=== PATIENT | female | born 1950 | race Caucasian/White ===

== ENCOUNTER 2017-01-05 07:57 | Day surgery (SDC) | payer MEDICARE ==
[2017-01-03 15:43] VITALS: BMI 33.3
[~2017-01-05 07:57] MED LIST: LACTATED RINGERS 1,000 ML IV SCH; LIDOCAINE 1% 20 ML VIAL (10MG/ML) FOR IV START INTRADERMA PRN
[2017-01-05 08:26] VITALS: TEMP 978.2
[2017-01-05 08:27] LABS: Glucose,Whole Blood 102 mg/dL (75-99)
[2017-01-05] MEDS ORDERED: PROPOFOL 10 MG/ML 20 ML VIAL IV ONE (08:32)
--- NOTE | 2017-01-05 08:57 | P.PCN ---
Date of Procedure: 01/05/17 Procedure(s) Performed: BRIEF HISTORY: Patient is a 66-year-old pleasant white female, scheduled for an elective colonoscopy as a part of evaluation of prior history of colon polyps. Her last colonoscopy was done 5 years ago. PROCEDURE PERFORMED: Colonoscopy. PREOPERATIVE DIAGNOSIS: History of colon polyps. IV sedation per Anesthesia. PROCEDURE: After informed consent was obtained, the patient, was brought into the endoscopy unit. IV sedation was administered by Anesthesia under continuous monitoring. Digital rectal examination was normal. Initially the Olympus CF- 160 flexible video colonoscope was then inserted in the rectum, gradually advanced into the cecum without any difficulty. Careful examination was performed as the scope was gradually being withdrawn. Ileocecal valve and the appendiceal orifice were visualized and appeared normal. Prep was excellent. Mucosa of the cecum, ascending colon, transverse colon, descending colon, sigmoid colon, and rectum appeared normal. Scattered sigmoid diverticulosis seen. Retroflexion was performed in the rectum and no lesions were seen. The patient tolerated the procedure well. IMPRESSION: Normal-appearing colon from rectum to cecum with no evidence of colorectal neoplasia. Scattered sigmoid diverticulosis.. RECOMMENDATIONS: Findings of this examination were discussed with the patient as well as her family. She was advised to have a repeat screening colonoscopy in 5 years because of the prior history of colon polyps..
[2017-01-05 09:05] VITALS: RESP 18
[2017-01-05 09:19] VITALS: BP 106/61; PULSE 68
== END 2017-01-05 09:37 | disposition home or self-care (01) ==
LOC: ORWHC2ENDO 07:57
PROVIDERS: ATTEND Internal Medicine Gastroenterology
DX: Z12.11 Encounter for screening for malignant neoplasm of colon (principal); K57.30 Diverticulosis of large intestine without perforation or abscess without bleeding; R19.4 Change in bowel habit; Z86.010 Personal history of colon polyps; I10 Essential (primary) hypertension; E78.5 Hyperlipidemia, unspecified; Z88.1 Allergy status to other antibiotic agents; J45.909 Unspecified asthma, uncomplicated; Z79.84 Long term (current) use of oral hypoglycemic drugs; Z79.899 Other long term (current) drug therapy
CPT/HCPCS: J2704; G0105

== ENCOUNTER → 2017-07-08 | Outpatient (CLI) | payer MEDICARE ==
--- NOTE | 2017-07-12 10:23 | MM ---
Reason for exam: screening (asymptomatic). Last mammogram was performed 1 year and 5 months ago. History: Patient is postmenopausal. Took estrogen for 6 years beginning at age 50. Physical Findings: A clinical breast exam by your physician is recommended on an annual basis and results should be correlated with mammographic findings. MG Screening Mammo w CAD Bilateral CC and MLO view(s) were taken. Prior study comparison: February 03, 2016, bilateral MG screening mammo w CAD. November 18, 2014, bilateral MG work up mamm w CAD BILAT. There are scattered fibroglandular densities. No suspicious abnormality. No significant changes when compared with prior studies. ASSESSMENT: Negative, BI-RAD 1 RECOMMENDATION: Routine screening mammogram of both breasts in 1 year.
== END | disposition home or self-care (01) ==
LOC: RADMAMWWP 07:48
PROVIDERS: ATTEND Family Medicine
DX: Z12.31 Encounter for screening mammogram for malignant neoplasm of breast (principal)
CPT/HCPCS: 77067

== ENCOUNTER 2018-06-11 23:40 | Emergency (ER) | payer MEDICARE ==
[2018-06-12] MEDS ORDERED: SODIUM CHLORIDE 0.9% 500 ML 500 ML IV STA (01:17)
[2018-06-12] MEDS ORDERED: ONDANSETRON 4 MG/2 ML VIAL IVP STA (01:17)
[2018-06-12 02:56] LABS: Basophils # (A) 0.1 k/uL (0-0.2); Basophils % (A) 1 %; Eosinophils # (A) 0.2 k/uL (0-0.7); Eosinophils % (A) 1 %; HCT 40.6 % (34.0-46.0); Lymphocytes # (A) 1.5 k/uL (1.0-4.8); Lymphocytes % (A) 8 %; MCHC 31.9 g/dL (31.0-37.0); MCV 87.7 fL (80.0-100.0); Mean Platelet Volume 8.1; Monocytes # (A) 0.7 k/uL (0-1.0); Monocytes % (A) 4 %; Neutrophils # (A) 14.7 k/uL (1.3-7.7); Neutrophils % (A) 86 %; Platelet Count 190 k/uL (150-450); RBC 4.63 m/uL (3.80-5.40); RDW 13.4 % (11.5-15.5); WBC 17.2 k/uL (3.8-10.6)
--- NOTE | 2018-06-12 03:04 | ED ---
Nausea/Vomiting/Diarrhea HPI - General Chief complaint: Nausea/Vomiting/Diarrhea Stated complaint: NVD Time Seen by Provider: 06/12/18 03:02 Source: patient Mode of arrival: ambulatory Limitations: no limitations - History of Present Illness Initial comments: Feels a 67-year-old female presents the emergency department this morning for evaluation of epigastric and up bilateral upper quadrant abdominal discomfort. Patient reports that for the past approximately one year she's been dealing with daily episodes of loose stools. She reports that she frequently is woken from sleep early in the morning with the urge to have a bowel movement. She reports she's discussed this with her senior site manager as well as her primary care physician. At this time that all of his specific diagnosis for why she is experiencing this. Patient reports that occasionally over the past year she's had episodes of severe epigastric abdominal discomfort doubles her over in pain and causes nausea and vomiting. Patient reports that she woke this morning with the urge to have a bowel movement she had a loose bowel movement subsequently developed severe epigastric abdominal pain she had some nausea and nonbloody nonbilious emesis. After vomiting she reports her pain improved. Patient reports that upon arrival in the emergency department she is actually feeling much better but she came into be evaluated as there is some concern that her discomfort may be secondary gallbladder dysfunction. - Related Data Home Medications Medication Instructions Recorded Confirmed Atorvastatin [Lipitor] 10 mg PO HS 01/03/17 01/05/17 Gabapentin [Neurontin] 600 mg PO BID 01/03/17 01/05/17 Glimepiride [Amaryl] 1 mg PO W/SUPPER 01/03/17 01/05/17 Levothyroxine Sodium [Synthroid] 125 mcg PO DAILY 01/03/17 01/05/17 Lisinopril-Hctz 20-25 mg 1 tab PO DAILY 01/03/17 01/05/17 [Zestoretic 20-25] metFORMIN HCL [Glucophage] 1,500 mg PO W/SUPPER 01/03/17 01/05/17 Allergies Allergy/AdvReac Type Severity Reaction Status Date / Time sulfamethoxazole Allergy Rash/Hives Verified 01/03/17 15:36 [From Bactrim] trimethoprim [From Bactrim] Allergy Rash/Hives Verified 01/03/17 15:36 Review of Systems ROS Statement: Those systems with pertinent positive or pertinent negative responses have been documented in the HPI. ROS Other: All systems not noted in ROS Statement are negative. Past Medical History Past Medical History: Asthma, Diabetes Mellitus, Hypertension, Thyroid Disorder Additional Past Medical History / Comment(s): diabetic neuropathy, bronchial asthma, irritable bowel/diarrhea, History of Any Multi-Drug Resistant Organisms: None Reported Past Surgical History: Bladder Surgery, Hysterectomy, Orthopedic Surgery Additional Past Surgical History / Comment(s): D&C, bladder suspension with mesh Past Anesthesia/Blood Transfusion Reactions: No Reported Reaction Past Psychological History: No Psychological Hx Reported Smoking Status: Never smoker - Past Family History Mother Family Medical History: Cancer, Deep Vein Thrombosis (DVT) General Exam - General Exam Comments Initial Comments: Physical Exam GENERAL: Patient is well-developed and well-nourished. Patient is nontoxic and well- hydrated and is in no distress. HENT: Normocephalic, Atraumatic. EYES: PERRL, EOMI PULMONARY: Unlabored respirations. No audible rales rhonchi or wheezing was noted. CARDIOVASCULAR: There is a regular rate and rhythm without any murmurs gallops or rubs. ABDOMEN: Soft and nontender with normal bowel sounds. SKIN: Skin is clear with no lesions or rashes and otherwise unremarkable. : Deferred NEUROLOGIC: Patient is alert and oriented x3. Moving all extremities spontaneously MUSCULOSKELETAL: Normal extremities with adequate strength and full range of motion. No lower extremity swelling or edema. No calf tenderness. PSYCHIATRIC: Normal psychiatric evaluation. Limitations: no limitations Limitations: no limitations Course Vital Signs 06/12/18 06/12/18 00:18 04:45 Temperature 97.6 F 98.4 F Pulse Rate 68 91 Respiratory 16 20 Rate Blood Pressure 132/74 131/75 O2 Sat by Pulse 100 97 Oximetry Medical Decision Making - Lab Data Result diagrams: 06/12/18 02:47 06/12/18 02:47 Lab Results 06/12/18 06/12/18 06/12/18 Range/Units 02:47 02:47 02:57 WBC 17.2 H (3.8-10.6) k/uL RBC 4.63 (3.80-5.40) m/uL Hgb 13.0 (11.4-16.0) gm/dL Hct 40.6 (34.0-46.0) % MCV 87.7 (80.0-100.0) fL MCH 28.0 (25.0-35.0) pg MCHC 31.9 (31.0-37.0) g/dL RDW 13.4 (11.5-15.5) % Plt Count 190 (150-450) k/uL Neutrophils % 86 % Lymphocytes % 8 % Monocytes % 4 % Eosinophils % 1 % Basophils % 1 % Neutrophils # 14.7 H (1.3-7.7) k/uL Lymphocytes # 1.5 (1.0-4.8) k/uL Monocytes # 0.7 (0-1.0) k/uL Eosinophils # 0.2 (0-0.7) k/uL Basophils # 0.1 (0-0.2) k/uL Sodium 140 (137-145) mmol/L Potassium 4.9 (3.5-5.1) mmol/L Chloride 104 (98-107) mmol/L Carbon Dioxide 26 (22-30) mmol/L Anion Gap 10 mmol/L BUN 29 H (7-17) mg/dL Creatinine 1.34 H (0.52-1.04) mg/dL Est GFR (CKD-EPI)AfAm 47 (>60 ml/min/1.73 sqM) Est GFR (CKD-EPI)NonAf 41 (>60 ml/min/1.73 sqM) Glucose 163 H (74-99) mg/dL Calcium 9.8 (8.4-10.2) mg/dL Total Bilirubin 0.6 (0.2-1.3) mg/dL AST 21 (14-36) U/L ALT 30 (9-52) U/L Alkaline Phosphatase 69 (38-126) U/L Total Protein 7.3 (6.3-8.2) g/dL Albumin 4.6 (3.5-5.0) g/dL Amylase 63 (30-110) U/L Lipase 145 (23-300) U/L Urine Color Yellow Urine Appearance Clear (Clear) Urine pH 5.0 (5.0-8.0) Ur Specific [place] 1.030 (1.001-1.035) Urine Protein Negative (Negative) Urine Glucose (UA) Negative (Negative) Urine Ketones Negative (Negative) Urine Blood Negative (Negative) Urine Nitrite Negative (Negative) Urine Bilirubin 1+ H (Negative) Urine Urobilinogen <2.0 (<2.0) mg/dL Ur Leukocyte Esterase Small (Negative) Urine WBC 3 (0-5) /hpf Ur Squamous Epith Cells 3 (0-4) /hpf Urine Bacteria Few H (None) /hpf Disposition Clinical Impression: Nausea vomiting and diarrhea, Dehydration Disposition: HOME SELF-CARE Condition: Stable Instructions (If sedation given, give patient instructions): Acute Nausea and Vomiting (ED) Additional Instructions: He needed to follow-up with her senior site manager as well as general surgeon for further evaluation of year chronic GI upset and episodes of abdominal pain. I do have a high suspicion for gallbladder dysfunction which may require further testing and possibly removal of her gallbladder. Avoid greasy or fatty foods, eat small meals multiple times throughout the day. Is patient prescribed a controlled substance at d/c from ED?: No Referrals: Killian Prajapati DO [Primary Care Provider] - 1-2 days Corey Madrigal DO [Doctor of Osteopathic Medicine] - 1-2 days Time of Disposition: 04:08
[2018-06-12 03:14] LABS: Albumin 4.6 g/dL (3.5-5.0); Calcium 9.8 mg/dL (8.4-10.2); Total Bilirubin 0.6 mg/dL (0.2-1.3); Total Protein 7.3 g/dL (6.3-8.2)
[2018-06-12 03:16] LABS: Potassium 4.9 mmol/L (3.5-5.1)
[2018-06-12 03:49] LABS: Bacteria,Urine Few /hpf; Squamous Epithelial Cell,Urine 3 /hpf (0-4); WBC,Urine 3 /hpf (0-5)
[2018-06-12 03:50] LABS: Appearance,Urine Clear (Clear); Bilirubin,Urine 1+ (Negative); Blood,Urine Negative (Negative); Color,Urine Yellow; Glucose,Urine (UA) Negative (Negative); Ketones,Urine Negative (Negative); Protein,Urine Negative (Negative); Urobilinogen,Urine <2.0 mg/dL (<2.0)
[2018-06-12 03:51] LABS: Leukocyte Esterase,Urine Small (Negative); Nitrite,Urine Negative (Negative)
[2018-06-12 04:46] VITALS: BP 131/75; PULSE 91; RESP 20; TEMP 98.4
== END 2018-06-12 04:46 | disposition home or self-care (01) ==
LOC: EC 23:40
DX: E86.0 Dehydration (principal); R11.2 Nausea with vomiting, unspecified; R19.7 Diarrhea, unspecified; R10.13 Epigastric pain; R10.11 Right upper quadrant pain; R10.12 Left upper quadrant pain; E11.40 Type 2 diabetes mellitus with diabetic neuropathy, unspecified; I10 Essential (primary) hypertension; E07.9 Disorder of thyroid, unspecified; Z79.890 Hormone replacement therapy; Z79.84 Long term (current) use of oral hypoglycemic drugs; Z79.899 Other long term (current) drug therapy; Z88.1 Allergy status to other antibiotic agents; Z88.2 Allergy status to sulfonamides
CPT/HCPCS: 36415; 80053; 82150; 83690; 85025; 81001; 99284; 96374; 96361 ×2; J2405

== ENCOUNTER → 2018-06-19 | Outpatient (CLI) | payer MEDICARE ==
[2018-06-19 16:30] LABS: LDL Cholesterol,Calculated 42.4 mg/dL (0.0-131.0); VLDL Calculation 30.6 mg/dL (5.00-40.00)
[2018-06-19 16:38] LABS: T4, Free (Free Thyroxine) 1.3 ng/dL (0.80-1.80)
[2018-06-19 17:51] LABS: Hemoglobin A1C 6.1 % (4.0-6.0)
== END | disposition home or self-care (01) ==
LOC: LABWHC1 08:51
PROVIDERS: ATTEND Family Medicine
DX: E11.9 Type 2 diabetes mellitus without complications (principal); I10 Essential (primary) hypertension; E03.9 Hypothyroidism, unspecified
CPT/HCPCS: 36415; 80061; 83036; 84439; 84443

== ENCOUNTER → 2018-06-26 | Outpatient (CLI) | payer MEDICARE ==
--- NOTE | 2018-06-27 08:34 | NM ---
EXAMINATION TYPE: NM hepatobiliary w EF DATE OF EXAM: 06/26/2018 COMPARISON: NONE HISTORY: K 81.0 TECHNIQUE: After the intravenous administration of 3.76 mCi Tc 99m Mebrofenin hepatobiliary scintigra phy is performed. Immediate images post injection. FINDINGS: There is satisfactory initial accumulation of tracer by the liver. The gallbladder is visualized wit hin 22 minutes. The small bowel activity is noted within 20 minutes. At one hour 8 ounces of oral e nsure plus is given to mimic CCK and gallbladder ejection fraction is calculated at 96 %, abnormally high. Therefore there is no scintigraphic evidence of cystic or common bile duct obstruction to sugg est acute cholecystitis or gallbladder dyskinesia. IMPRESSION: 1. Abnormally elevated gallbladder ejection fraction compatible with biliary hyperkinesia. 2. No scintigraphic evidence of acute or chronic cholecystitis.
== END | disposition home or self-care (01) ==
LOC: RADNMMAIN 12:50
PROVIDERS: ATTEND Family Medicine
DX: R93.2 Abnormal findings on diagnostic imaging of liver and biliary tract (principal); Z88.2 Allergy status to sulfonamides
CPT/HCPCS: 78226; A9537

== ENCOUNTER 2018-08-30 07:09 | Day surgery (SDC) | payer MEDICARE ==
[2018-08-25 15:52] VITALS: BMI 32.5
[2018-08-30 07:36] VITALS: TEMP 98.2
[2018-08-30] MEDS ORDERED: PROPOFOL 10 MG/ML 20 ML VIAL IV ONE (07:41)
[2018-08-30] MEDS ORDERED: LIDOCAINE 1% INJ 10MG/ML (20 ML MDV) ONE (07:41)
[2018-08-30 07:53] LABS: Glucose,Whole Blood 101 mg/dL (75-99)
[2018-08-30 08:16] VITALS: BP 101/64; PULSE 69; RESP 16
--- NOTE | 2018-08-30 10:41 | P.PCN ---
Date of Procedure: 08/30/18 Procedure(s) Performed: Date of Procedure: 08/30/18 Procedure(s) Performed: Preoperative Dx: Epigastric pain, vomiting Postoperative Dx: Gastritis with small erosions Procedure: EGD with Bx Anesthesia: Sedation Endoscopist: Dr. Cueva Specimens: Duodenum, antrum Endoscopic Procedure: The patient was on the endoscopy table in the left decubitus position. The Olympus gastroscope was inserted into the oropharynx and passed under direct visualization to the region of the third portion of the duodenum. From that point the scope was slowly withdrawn inspecting all surfaces carefully. There were no neoplastic inflammatory or polypoid lesions throughout the duodenum. A biopsy of the duodenum took place to evaluate for celiac disease. The pylorus was widely patent. The stomach was carefully inspected. There was gastritis present with small erosions in the prepyloric region. A biopsy of the antrum took place to rule out H. pylori. Retroflexion revealed a normal hiatus. The esophagus was then carefully examined. There were no neoplastic inflammatory or polypoid lesions throughout the visualized esophagus. The patient was then taken to the recovery room in stable condition per anesthesia guidelines. Recommendations: Antiacid therapy. Will order a gastric emptying study.
== END 2018-08-30 08:30 | disposition home or self-care (01) ==
LOC: ORWHC2ENDO 07:09
PROVIDERS: ATTEND Surgery
DX: R11.2 Nausea with vomiting, unspecified (principal); E11.40 Type 2 diabetes mellitus with diabetic neuropathy, unspecified; I10 Essential (primary) hypertension; E07.9 Disorder of thyroid, unspecified; K58.9 Irritable bowel syndrome, unspecified; Z83.79 Family history of other diseases of the digestive system; Z90.710 Acquired absence of both cervix and uterus; J45.909 Unspecified asthma, uncomplicated; Z98.51 Tubal ligation status; Z79.84 Long term (current) use of oral hypoglycemic drugs; Z79.890 Hormone replacement therapy; Z79.899 Other long term (current) drug therapy; Z88.1 Allergy status to other antibiotic agents; Z88.2 Allergy status to sulfonamides
CPT/HCPCS: 88305; 43239; J2001; J2704

== ENCOUNTER → 2018-09-06 | Outpatient (CLI) | payer MEDICARE ==
--- NOTE | 2018-09-06 10:00 | NM ---
EXAMINATION TYPE: NM gastric emptying study DATE OF EXAM: 09/06/2018 COMPARISON: NONE HISTORY: 67-year-old female epigastric pain, heartburn, nausea, vomiting, diarrhea. Technique: Following administration of 1.9 mCi Tc 99m Sulfur Colloid with 1 cup of oatmeal projection images of the abdomen were obtained 6 minutes post ingestion. Imaging was carried out to 89 minutes. When possible, both anterior and posterior projection images were obtained to allow the calculation of the geometric mean activity. FINDINGS: Clearance: 100 % Half-life: 16 min Gastroesophageal reflux: None IMPRESSION: Complete emptying is visualized at 50 minutes with T 1/2 of 16 minutes. Findings suggest rapid emptyi ng.
== END | disposition home or self-care (01) ==
LOC: RADNMMAIN 06:47
PROVIDERS: ATTEND Surgery
DX: R13.10 Dysphagia, unspecified (principal)
CPT/HCPCS: 78264; A9541

== ENCOUNTER → 2019-02-05 | Outpatient (CLI) | payer MEDICARE ==
--- NOTE | 2019-02-06 11:43 | MM ---
Reason for exam: screening (asymptomatic). Last mammogram was performed 1 year and 7 months ago. History: Patient is postmenopausal. Took estrogen for 6 years beginning at age 50. Physical Findings: A clinical breast exam by your physician is recommended on an annual basis and results should be correlated with mammographic findings. MG 3D Screening Mammo W/Cad Bilateral CC and MLO view(s) were taken. Prior study comparison: July 08, 2017, bilateral MG screening mammo w CAD. February 03, 2016, bilateral MG screening mammo w CAD. The breast tissue is heterogeneously dense. This may lower the sensitivity of mammography. Focal asymmetry upper outer left breast 7.2cm from nipple. This finding is changed when compared with previous exams. ASSESSMENT: Incomplete: need additional imaging evaluation, BI-RAD 0 RECOMMENDATION: Special view mammogram of the left breast. If lesion persists on supplemental views, image directed ultrasound is recommended. [facility] will attempt to contact patient to return for supplemental views and ultrasound if indicated.
== END | disposition home or self-care (01) ==
LOC: RADMAMWWP 13:50
PROVIDERS: ATTEND Family Medicine
DX: Z12.31 Encounter for screening mammogram for malignant neoplasm of breast (principal)
CPT/HCPCS: 77063; 77067

== ENCOUNTER → 2019-02-19 | Outpatient (CLI) | payer MEDICARE ==
--- NOTE | 2019-02-19 10:37 | MM ---
Reason for exam: additional evaluation requested from abnormal screening. Last mammogram was performed less than 1 month ago. History: Patient is postmenopausal. Took estrogen for 6 years beginning at age 50. Physical Findings: Nurse did not find any significant physical abnormalities on exam. MG 3D Work Up W/Cad LT Spot compression CC, spot compression MLO, and LM view(s) were taken of the left breast. Prior study comparison: February 05, 2019, bilateral MG 3d screening mammo w/cad. July 08, 2017, bilateral MG screening mammo w CAD. There are scattered fibroglandular densities. No distinct lesion persists. These results were verbally communicated with the patient and result sheet given to the patient on 02/19/19. ASSESSMENT: Negative, BI-RAD 1 RECOMMENDATION: Return to routine screening mammogram schedule for both breasts.
== END | disposition home or self-care (01) ==
LOC: RADMAMWWP 08:54
PROVIDERS: ATTEND Family Medicine
DX: R92.8 Other abnormal and inconclusive findings on diagnostic imaging of breast (principal)
CPT/HCPCS: 77065; G0279; 77061

== ENCOUNTER → 2019-08-02 | Outpatient (CLI) | payer MEDICARE | END | disposition home or self-care (01) | LOC: LABWHC1 08:25 | PROVIDERS: ATTEND Orthopaedic Surgery | DX: U07.1 COVID-19 (principal) | CPT/HCPCS: 87635 ==

== ENCOUNTER → 2019-08-04 | Day surgery (SDC) | payer MEDICARE ==
[2019-08-02 13:40] VITALS: BMI 32.5
[~2019-08-04] MED LIST changes: +DEXAMETHASONE SOD PHOSPHATE 10 MG/ML 1 ML VIAL IV ONE; +HYDROmorphone 0.5 MG/0.5 ML SYRINGE IVP PRN; +LACTATED RINGERS 1,000 ML IV ONE; +LIDOCAINE 1% (10MG/ML) FOR IV START INTRADERMA ONE; -LIDOCAINE 1% 20 ML VIAL (10MG/ML) FOR IV START INTRADERMA PRN; +LIDOCAINE 1% INJ 10MG/ML (20 ML MDV) ONE; +MIDAZOLAM 2 MG/2 ML VIAL IV PRN; +MIDAZOLAM 2 MG/2 ML VIAL IVP ONE; +MIDAZOLAM 2 MG/2 ML VIAL ONE; +ONDANSETRON 4 MG/2 ML VIAL IVP ONE; +PROPOFOL 10 MG/ML 20 ML VIAL IV ONE; +ROPIVACAINE 5 MG/ML 30 ML VIAL ONE; +SUCCINYLCHOLINE CHLORIDE 100 MG/5 ML SYR IV ONE; +fentaNYL (PF) 50 MCG/ML 2 ML AMP ONE
[2019-08-04 09:49] LABS: Glucose,Whole Blood 90 mg/dL (75-99)
--- NOTE | 2019-08-04 13:16 | P.ANPRN ---
Procedure Note - Anesthesia - Nerve Block Performed Left Popliteal Date of Procedure: 08/04/19 Procedure Start Time: 10:49 Procedure Stop Time: 11:06 Location of Patient: PreOp Indication: Acute Post-Operative Pain, Requested by Surgeon (Dr Stiles) Sedation Type: Sedate with meaningful contact maintained Preparation: Sterile Prep Position: Right Lateral Catheter: None Needle Types: Pajunk Needle Gauge: 21 Ultrasound used to visualize needle placement: Yes Ultrasound used to observe medication spread: Yes Injectate: 0.5% Ropivacaine (see comment for volume) (20cc) Blood Aspirated: No Pain Paresthesia on Injection Noted: No Resistance on Injection: Normal Image Stored and Saved: Yes Events: Uneventful and Well Tolerated
--- NOTE | 2019-08-04 13:33 | P.OP ---
Date of Procedure: 08/04/19 Preoperative Diagnosis: 1. Complete left tibialis anterior tendon rupture 2. Type 2 diabetes Postoperative Diagnosis: Same Procedure(s) Performed: 1. Left tibialis anterior tendon reconstruction with EHL tendon transfer to medial cuneiform 2. Left gastrocnemius recession 3. Left EHL and EHB tendon transfer 4. Application of short leg splint by physician, left leg Anesthesia: GETA, regional Surgeon: Gabe Stiles Grinder Operator #1: Claudy Machado Estimated Blood Loss (ml): 5 IV fluids (ml): 1,200 Pathology: none sent Condition: stable Disposition: PACU Indications for Procedure: The patient is very pleasant 68-year-old female with a past medical history significant for diabetes mellitus. She sustained an isolated injury to her left ankle where she felt a pop in the anterior aspect of the ankle. She was seen in the office were clinically she had findings suggestive of a distal tibialis anterior tendon rupture. This was confirmed with MRI. The patient had previously had a right tibialis anterior tendon rupture that I managed with an EHL tendon transfer and the patient did well. We discussed nonsurgical treatment with an AFO versus surgical reconstruction. Having previously had surgery and knowing the outcome the patient requested surgery. We had along discussion particularly pertaining to timing of surgery given the Covid19 pandemic. We discussed delayed surgery versus surgery acutely. After hearing her options the patient requested more timely surgery. I agreed to this and assured her that our facility would do everything in our power to lower her risk of abelardo Jonas virus. We discussed potential risks and Locations of her surgical procedure including but certainly not limited to risk of anesthesia, superficial infection, deep infection, damage to local blood vessels or nerves, tendon rerupture, weakness, gait disturbance, DVT, PE, rerupture, inability to regain preinjury level of function, and possibly loss of life or limb. Having previously undergone the same procedure the patient was well aware of the potential risks and also acknowledges the potential for other less common complications. She provided her verbal and written consent to go forward with surgery. Operative Findings: There is a complete tibialis anterior tendon rupture retracted to the inferior extensor retinaculum. Description of Procedure: The patient was identified in preoperative holding and the correct left leg was marked with my initials. I reviewed the consent form with the patient and her . All their questions were answered. The patient was given a block by anesthesia. She was then brought back to the operating room. She was positioned on the OR table where general anesthetic and preoperative antibiotics were given. A tourniquet was applied to the proximal aspect of the left leg. The left leg was then prepped and draped in the standard sterile fashion. Prior to starting surgery timeout was performed identifying the correct patient, operative extremity, and procedure. The patient's leg was then elevated, exsanguinated with an Esmarch bandage, and the tourniquet was inflated to 250 mmHg. I began by performing a [place] type gastrocnemius recession to offload the EHL tendon transfer. Standard incision was marked out over the posterior medial calf. Dissection was carried down carefully to the subcutaneous tissue. The superficial fascia was identified and incised. The gastrocnemius aponeurosis was identified and cleared of tissue to make sure the sural nerve was not adherent to it. Modified right angle retractors were placed in the gastrocnemius aponeurosis was sharply released from medial to lateral in its entirety. The wound was then thoroughly irrigated and closed in layers. An anteromedial incision was then made over the ankle. Skin incision made a scalpel and dissection was carried down carefully to the subcutaneous tissue. The sheath of the tibialis anterior tendon was sharply incised and the tendon was found to be completely ruptured and retracted to the inferior extensor retinaculum. At this point a 3 cm incision was made over the dorsomedial aspect of the first MTP joint. The EHL tendon was identified and released distally. The distal stump of the EHL tendon was then transferred to the EHB tendon and sutured with a 2-0 Ethibond. The EHL tendon was then shuttled oxylate into the anterior ankle wound. Using a #2 Ethibond the distal aspect of the EHL tendon was grasped with a modified Krakw type stitch. The tendon was then sized. The central aspect of the medial cuneiform was marked with fluoroscopy and a guidepin was placed centrally in the medial cuneiform. A drill was used to create a bone tunnel for the tendon transfer. The EHL tendon was then passed f rom dorsal to plantar and shuttled medially around the medial cuneiform. Tension was pulled and the ankle was held in dorsiflexion. A Bio-Tenodesis screw was placed in the medial cuneiform securing the tendon into its drill hole. The tendon was passed back onto itself and sutured in place with 2-0 Ethibond. The distal tibialis anterior was sutured into the EHL tendon. A final fluoroscopic image was taken verifying position of the bone tunnel in the medial cuneiform. Clinically there was a nice grimm tendon reconstruction. All wounds were thoroughly irrigated and closed in layers. Sterile dressings were applied. A well-padded bulky Olson splint was placed with the ankle at neutral. The patient was then awoken from her anesthetic, transferred from the OR table to a gurney, and transferred to recovery having tolerated the procedure well. Claudy Machado PA-C was required as a skilled personal assistant for patient positioning, surgical exposure, retraction, placement of hardware, closure of wound, and application of splint. Plan: The patient is going to be discharged home as an outpatient. She is to remain strictly nonweightbearing on her operative extremity. She was instructed on normal splint maintenance. She'll be given pain medication and a stool softener. I also would recommend aspirin for DVT prophylaxis. Due to the fact the patient had bilateral tendon ruptures I recommended follow-up with her primary care physician to discuss a possible systemic cause of this. We will plan on seeing her back in the office in 2 weeks for splint removal and a soft tissue check. She does not need x-rays at that time.
[2019-08-04 13:56] VITALS: TEMP 97.3
--- NOTE | 2019-08-04 14:09 | XR ---
FLUOROSCOPY 6 seconds of fluoroscopy time were utilized during left foot tendon repair. 2 images document the pro cedure.
[2019-08-04 14:13] LABS: Glucose,Whole Blood 172 mg/dL (75-99)
[2019-08-04 14:25] VITALS: RESP 17
[2019-08-04 14:31] VITALS: BP 124/70; PULSE 61
== END | disposition home or self-care (01) ==
LOC: OR 09:19
PROVIDERS: ATTEND Orthopaedic Surgery
DX: S46.812A Strain of other muscles, fascia and tendons at shoulder and upper arm level, left arm, initial encounter (principal); X58.XXXA Exposure to other specified factors, initial encounter; E11.40 Type 2 diabetes mellitus with diabetic neuropathy, unspecified; I10 Essential (primary) hypertension; E03.9 Hypothyroidism, unspecified; Z97.3 Presence of spectacles and contact lenses; Z79.84 Long term (current) use of oral hypoglycemic drugs; Z79.890 Hormone replacement therapy; Z79.899 Other long term (current) drug therapy; Z88.2 Allergy status to sulfonamides
CPT/HCPCS: 64445; 76942; 73620; 27687; 27691; C1713; J2250; J1100; J0690; J2405; J2001; J3010; J2795; J0330; J2704

== ENCOUNTER 2019-08-13 08:38 | Emergency (ER) | payer MEDICARE ==
[2019-08-13 08:55] VITALS: RESP 18; TEMP 98.5
--- NOTE | 2019-08-13 09:30 | ED ---
Extremity Problem HPI - General Chief complaint: Extremity Problem,Nontraumatic Stated complaint: Calf pain Time Seen by Provider: 08/13/19 08:55 Source: patient, RN notes reviewed Mode of arrival: wheelchair Limitations: no limitations - History of Present Illness Initial comments: This a 68-year-old female presents emergency Department chief complaint of left foot pain. Patient states that she had surgery on 08/04/[address] Stiles for tender around her left ankle. Patient's states that she's been a splint ever since she is scheduled follow-up at the beginning of August. Patient states that she's had increasing pain behind her knee and left calf is concerned about possible DVT. Patient has no history. Patient denies any chest pain or justin rtness of breath. Patient has been taking full dose aspirin as directed by orthopedic surgeon. Patient denies any other complaints at this time. Patient denies any paresthesias. Patient states her toes are exposed and have normal coloring. - Related Data Home Medications Medication Instructions Recorded Confirmed Atorvastatin [Lipitor] 10 mg PO HS 01/03/17 08/02/19 Gabapentin [Neurontin] 600 mg PO BID 01/03/17 08/02/19 Glimepiride [Amaryl] 1 mg PO QAM 01/03/17 08/02/19 Levothyroxine Sodium [Synthroid] 112 mcg PO DAILY 01/03/17 08/02/19 metFORMIN HCL [Glucophage] 1,000 mg PO W/SUPPER 01/03/17 08/02/19 Lisinopril [Zestril] 20 mg PO DAILY 08/02/19 08/02/19 Previous Rx's Medication Instructions Recorded Aspirin 325 mg PO DAILY #14 tab 08/04/19 Docusate [Colace] 100 mg PO BID #28 capsule 08/04/19 HYDROcodone/APAP 5-325MG [[place] 1 - 2 tab PO Q6HR PRN #20 tab 08/04/19 5-325] Allergies Allergy/AdvReac Type Severity Reaction Status Date / Time sulfamethoxazole Allergy Rash/Hives Verified 08/13/19 08:55 [From Bactrim] trimethoprim [From Bactrim] Allergy Rash/Hives Verified 08/13/19 08:55 Review of Systems ROS Statement: Those systems with pertinent positive or pertinent negative responses have been documented in the HPI. ROS Other: All systems not noted in ROS Statement are negative. Past Medical History Past Medical History: Asthma, Diabetes Mellitus, Hypertension, Thyroid Disorder Additional Past Medical History / Comment(s): diabetic neuropathy, bronchial asthma, irritable bowel/diarrhea, History of Any Multi-Drug Resistant Organisms: None Reported Past Surgical History: Bladder Surgery, Hysterectomy, Orthopedic Surgery Additional Past Surgical History / Comment(s): D&C, bladder suspension with mesh, rt foot surgery, left foot surgery Past Anesthesia/Blood Transfusion Reactions: No Reported Reaction Past Psychological History: No Psychological Hx Reported Smoking Status: Never smoker Past Alcohol Use History: None Reported Past Drug Use History: None Reported - Past Family History Mother Family Medical History: Cancer, Deep Vein Thrombosis (DVT) General Exam Limitations: no limitations General appearance: alert, in no apparent distress, other (Vitals reviewed within normal limits.) Head exam: Present: atraumatic, normocephalic, normal inspection Eye exam: Present: normal appearance, PERRL, EOMI. Absent: scleral icterus, c onjunctival injection, periorbital swelling Respiratory exam: Present: normal lung sounds bilaterally. Absent: respiratory distress, wheezes, rales, rhonchi, stridor Cardiovascular Exam: Present: regular rate, normal rhythm, normal heart sounds. Absent: systolic murmur, diastolic murmur, rubs, gallop, clicks Extremities exam: Present: other (Splint noted to the left ankle, left lower extremity, toes are exposed, cap refill less than 2 seconds neurovascular intact I did unwrap the top of the splinter without removing it, there is tenderness of the calf, mild tenderness posterior knee region) Skin exam: Present: warm, dry, intact, normal color. Absent: rash Course Vital Signs 08/13/19 08:51 Temperature 98.5 F Pulse Rate 84 Respiratory 18 Rate Blood Pressure 131/80 O2 Sat by Pulse 98 Oximetry Medical Decision Making - Medical Decision Making Ultrasound is negative for acute DVT. Patient has a fluid collection approximately 9 x 3 cm. I did discuss the case with her surgeon Dr. Stiles who stated that she is okay for discharge, to remain in her well padded splint and she will follow-up. Disposition Clinical Impression: Hematoma of left lower extremity Disposition: HOME SELF-CARE Condition: Stable Instructions (If sedation given, give patient instructions): Hematoma (ED) Additional Instructions: Please return to the Emergency Department if symptoms worsen or any other concerns. Is patient prescribed a controlled substance at d/c from ED?: No Referrals: Killian rPajapati DO [Primary Care Provider] - 1-2 days Time of Disposition: 10:17
--- NOTE | 2019-08-13 10:03 | US ---
EXAMINATION TYPE: US venous doppler duplex LE DATE OF EXAM: 08/13/2019 9:38 AM COMPARISON: NONE CLINICAL HISTORY: pain. Surgery 1 week ago to repair tendon in left foot. Pain and bruising lateral l eft calf SIDE PERFORMED: Left TECHNIQUE: The lower extremity deep venous system is examined utilizing real time linear array sonog jose with graded compression, doppler sonography and color-flow sonography. VESSELS IMAGED: External Iliac Vein (EIV) Common Femoral Vein Deep Femoral Vein Greater Saphenous Vein * Femoral Vein Popliteal Vein Small Saphenous Vein * Proximal Calf Veins (* superficial vessels) There is normal flow, compressibility, vascular waveforms Left Leg: Negative for DVT At the area of the patient's bruising, lateral left calf, there is a complex fluid collection visuali zed measuring approximately 9.2 x 0.9 x 2.7 cm. Unable to visualized entire are due to patient' cast IMPRESSION: No evident deep venous thrombosis at or above the left knee. Possible area of ecchymosis or hematoma, indeterminate area at the lateral calf.
[2019-08-13 10:24] VITALS: BP 125/86; PULSE 80
== END 2019-08-13 10:21 | disposition home or self-care (01) ==
LOC: EC 08:38
DX: S80.12XA Contusion of left lower leg, initial encounter (principal); I10 Essential (primary) hypertension; E11.40 Type 2 diabetes mellitus with diabetic neuropathy, unspecified; E07.9 Disorder of thyroid, unspecified; Z79.84 Long term (current) use of oral hypoglycemic drugs; Z79.890 Hormone replacement therapy; Z79.899 Other long term (current) drug therapy; Z88.1 Allergy status to other antibiotic agents; Z88.2 Allergy status to sulfonamides
CPT/HCPCS: 99283

== ENCOUNTER → 2020-01-10 | Outpatient (CLI) | payer MEDICARE ==
--- NOTE | 2020-01-10 15:10 | US ---
EXAMINATION TYPE: US kidneys/renal and bladder DATE OF EXAM: 01/10/2020 COMPARISON: NONE CLINICAL HISTORY: R35.0 urinary frequency. multiple UTI's this summer EXAM MEASUREMENTS: Right Kidney: 11.0 x 3.8 x 4.7 cm Left Kidney: 11.0 x 4.7 x 5.4 cm Right Kidney: No hydronephrosis or masses seen Left Kidney: No hydronephrosis or masses seen Bladder: wnl Bilateral Jets seen: Yes There is no evidence for hydronephrosis at this point in time. No nephrolithiasis is seen. No carlos s are identified. The urinary bladder is anechoic. Bilateral ureteral jets are seen. When scanning the right kidney adjacent liver is heterogeneously hyperechoic. IMPRESSION: No hydronephrosis noted bilaterally.
== END | disposition home or self-care (01) ==
LOC: RADUSWWP 12:55
PROVIDERS: ATTEND Urology
DX: N30.20 Other chronic cystitis without hematuria (principal); R35.0 Frequency of micturition; Z88.2 Allergy status to sulfonamides
CPT/HCPCS: 76770

== ENCOUNTER → 2020-08-12 | Outpatient (CLI) | payer MEDICARE ==
--- NOTE | 2020-08-14 09:13 | MM ---
Reason for exam: screening (asymptomatic). Last mammogram was performed 1 year and 6 months ago. History: Patient is postmenopausal. Took estrogen for 6 years beginning at age 50. Physical Findings: A clinical breast exam by your physician is recommended on an annual basis and results should be correlated with mammographic findings. MG 3D Screening Mammo W/Cad Bilateral CC and MLO view(s) were taken. Prior study comparison: February 19, 2019, left breast MG 3d work up w/cad LT. February 05, 2019, bilateral MG 3d screening mammo w/cad. There are scattered fibroglandular densities. No significant changes when compared with prior studies. ASSESSMENT: Negative, BI-RAD 1 RECOMMENDATION: Routine screening mammogram of both breasts in 1 year.
== END | disposition home or self-care (01) ==
LOC: RADMAMWWP 08:35
PROVIDERS: ATTEND Family Medicine
DX: Z12.31 Encounter for screening mammogram for malignant neoplasm of breast (principal); Z78.0 Asymptomatic menopausal state
CPT/HCPCS: 77063; 77067

== ENCOUNTER → 2021-08-03 | Outpatient (CLI) | payer MEDICARE ==
[2021-08-03 13:49] VITALS: BP 173/77; PULSE 84; RESP 18; TEMP 98.6
--- NOTE | 2021-08-03 13:51 | P.CON ---
Consult Note - . Consult date: 08/03/21 Assessment/Plan:: HISTORY OF PRESENT ILLNESS: 70 yr old female at side as a referral from Dr. Lubin for severe and chronic LBP secondary to levoscoliosis, disc bulges, DDD, facet arthropathy and L L4/L L5 encroachment for evaluation. She states her pain level is 7/10 in intensity, sharp, burning, sore, achy in the lower aspects of her lumbar spine, R > L, with shooting pain down the RLE . Pain is provoked with standing/walking for periods of 10 minutes or more. Pain is alleviated with medications (Tylenol #3 and Aleve topical), TENS unit use, lumbar support brace use, alternating heat & ice, reclining on L side, repositioning and rest. Past Medical History: Asthma, Diabetes Mellitus, Diabetic Neuropathy, HTN, Thyroid Disorder Past Surgical History: Hysterectomy, Orthopedic Surgery, D&C, Bladder suspension with mesh Social History: Never smoker, No ETOH abuse, No illicit drug use. Family History: Mother- CA/ DV All: SMZ-TMP Meds: See list REVIEW OF ORGAN SYSTEMS: CONSTITUTIONAL: No fevers or chills. No recent weight loss. HEENT: No visual acuity loss, eye pain, difficulties with hearing. No nosebleeds. No difficulty swallowing. RESPIRATORY: Denies any troubles with breathing or dyspnea on exertion. CARDIOVASCULAR: Denies any chest pain, palpitations, or recent heart attacks. GASTROINTESTINAL: Denies fatty food intolerance. Has change in bowel habits and gas bloat. GENITOURINARY: Denies any blood in urine. Has increased urinary frequency. NEUROLOGICAL: + numbness and tingling along the distal extremities. No seizure disorders or headaches. MUSCULOSKELETAL: + back pain SKIN: No skin cancer. No rash. PSYCHIATRIC: Denies current depression or suicidal thoughts. ENDOCRINE: Denies current thyroid disorders. Denies any blood sugar glucose intolerance. HEME/LYMPHATIC: Denies any lumps and bumps around the neck. History of deep venous thrombosis. ALLERGY/IMMUNOLOGY: No immunoglobulin therapy. No immune deficiencies. BREAST: Denies current breast lumps, pain or nipple discharge. Physical Examinations : Constitutional : Cooperative , not in acute distress . HEENT: Neck supple. No Lymphadenopathy. Normal thyroid size . Eyes no ptosis , no icterus, no photophobia . Hearing intact. Normal oropharynx. No Thrush. Respiratory : Chest clear to auscultations bilaterally. No wheezing. No rhonchi. Cardiovascular : Regular rate and rhythm , S1 / S2. No S3 . No S4. Gastrointestinal : Abdomen soft. No tenderness. Bowel sounds x 4. No organomegaly . Genitourinary : Deferred. Neurologic : Cranial nerve II to XII intact. No focal neurological deficits. Psychiatric : alert & oriented x 3. Matching mood & appropriate affect. Judgment & insight intact. Lymphatic No Lymphadenopathy. Musculoskeletal : Cervical Spine Motor strength in the deltoid and biceps: Normal right side. Normal Left side Motor strength biceps and the wrist extensors: Normal right side . Normal left side Motor strength in the triceps muscle: Normal right side. Normal left side Deep tendon reflexes: Normal at the biceps. Normal at Brachioradialis. Normal at triceps Cervical facet loading test: positive bilaterally Spurling test: positive bilaterally Neck distraction test: positive bilaterally Melania sign: positive bilaterally Lumbar spine Motor strength lower extremities ,thigh and legs 5/5 Right side , 5/5 Left side Deep tendon reflexes : Normal Knee Jerk. Normal Ankle Jerk Vertebral body tenderness over L4, L5 Lumbar facet Loading Test: positive Right / positive Left Range of motion of the lumbar spine Flexion 30 degrees, extension 10 degrees Straight Leg Raise test: Left/ Right positive at 40 degree Kirill test: positive right / positive left. Severe tenderness over the Sacroiliac joint on the Right / Left sides Gaenslen test: positive bilaterally Seated flexion test: positive bilaterally. Imaging: MRI without contrast of the lumbar spine from 07/16/21 reviewed Assessment/ Plan : Lumbar spondylosis, Lumbar DDD, Lumbar facet arthropathy Recommendation of HUSSAIN L4-L5. May need a series of injections, up to 3 within a 6 month timeframe, for optimal pain relief. Risks, benefits of procedure discussed and patient verbalized understanding. Denies aspirin or anti- coagulant use. Admits to a medical history of diabetes. Protocol for discontinuation/continuation of medications todd procedure discussed. All questions answered. I have spent greater than 50 minutes on patient care today. Dr Hernandez was available by phone for the evaluation of this patient. The time was used to review the medical records including relevant urine studies and Prescription history (MAPs), review of the available imaging, evaluation and examination of the patient, coordination of care with the medical staff and if applicable referring physicians, as well as creation of the medical record PQRS Measure Charge Sheet Mode of Arrival: Ambulatory, Cane - Pain Location Bilateral Lower Back Non-Pharmacological Interventions: Heat, Ice, Position/Reposition, TENS Unit Pharmacological Interventions: Scheduled Medication, Topical Medication PQRS Narrative: Smoking Status Never smoker Blood Pressure 173/77 Pain Intensity [Bilateral 7 Lower Back] Scale Used Numeric (1 - 10) Hx Alcohol Use (MH) No Home Medications: Ambulatory Orders Atorvastatin [Lipitor] 10 mg PO HS 01/03/17 Gabapentin [Neurontin] 600 mg PO BID 01/03/17 Glimepiride [Amaryl] 1 mg PO QAM 01/03/17 Levothyroxine Sodium [Synthroid] 112 mcg PO DAILY 01/03/17 metFORMIN HCL [Glucophage] 1,000 mg PO W/SUPPER 01/03/17 lisinopriL [Zestril] 20 mg PO DAILY 08/02/19 Aspirin 325 mg PO DAILY #14 tab 08/04/19 Docusate [Colace] 100 mg PO BID #28 capsule 08/04/19 HYDROcodone/APAP 5-325MG [[place] 5-325] 1 - 2 tab PO Q6HR PRN #20 tab 08/04/19
== END ==
LOC: PNWHC3 12:50
PROVIDERS: ATTEND Specialist
DX: M51.36 Other intervertebral disc degeneration, lumbar region (principal); M47.816 Spondylosis without myelopathy or radiculopathy, lumbar region; J45.909 Unspecified asthma, uncomplicated; E11.40 Type 2 diabetes mellitus with diabetic neuropathy, unspecified; I10 Essential (primary) hypertension; Z88.2 Allergy status to sulfonamides
CPT/HCPCS: 99211

== ENCOUNTER 2021-08-20 07:28 | Day surgery (SDC) | payer MEDICARE ==
[2021-08-19 11:33] VITALS: BMI 32.4
[~2021-08-20 07:28] MED LIST changes: -DEXAMETHASONE SOD PHOSPHATE 10 MG/ML 1 ML VIAL IV ONE; -HYDROmorphone 0.5 MG/0.5 ML SYRINGE IVP PRN; -LACTATED RINGERS 1,000 ML IV ONE; -LIDOCAINE 1% (10MG/ML) FOR IV START INTRADERMA ONE; +LIDOCAINE 1% (10MG/ML) FOR IV START INTRADERMA PRN; -LIDOCAINE 1% INJ 10MG/ML (20 ML MDV) ONE; -MIDAZOLAM 2 MG/2 ML VIAL IV PRN; -MIDAZOLAM 2 MG/2 ML VIAL IVP ONE; -MIDAZOLAM 2 MG/2 ML VIAL ONE; -ONDANSETRON 4 MG/2 ML VIAL IVP ONE; -PROPOFOL 10 MG/ML 20 ML VIAL IV ONE; -ROPIVACAINE 5 MG/ML 30 ML VIAL ONE; -SUCCINYLCHOLINE CHLORIDE 100 MG/5 ML SYR IV ONE; -fentaNYL (PF) 50 MCG/ML 2 ML AMP ONE
[2021-08-20 07:52] VITALS: TEMP 96.9
[2021-08-20] MEDS ORDERED: LIDOCAINE 1% (10MG/ML) FOR IV START INTRADERMA ONE (08:06)
[2021-08-20] MEDS ORDERED: IOPAMIDOL M200 10 ML VIAL ONE (08:07)
[2021-08-20] MEDS ORDERED: fentaNYL (PF) 50 MCG/ML 2 ML AMP ONE (08:07)
[2021-08-20] MEDS ORDERED: MIDAZOLAM 2 MG/2 ML VIAL ONE (08:07)
[2021-08-20] MEDS ORDERED: methylPREDNISolone ACETATE 40 MG/ML 1 ML VIAL ONE (08:07)
--- NOTE | 2021-08-20 08:23 | P.PCN ---
Date of Procedure: 08/20/21 Procedure(s) Performed: PREOPERATIVE DIAGNOSIS: 1- Lumbar Degenerative Disc Diseases 2-Lumbar spondylosis with Facet arthropathy without myelopathy POSTOPERATIVE DIAGNOSIS: Same as preop diagnosis. PROCEDURE 1. Lumbar epidural steroid injection under fluoroscopic guidance at the L4-5 level. (Fluoroscopy imaging was available in radiology department) 2. Lumbar epidurogram. ANESTHESIA: Local with 1% lidocaine 3 ml and , moderate sedation with intravenous Versed 2 mg ,and fentanyle 100 Mcg EBL: Minimal PROCEDURE INDICATION: The patient with low back pain and radiculitis symptoms unresponsive to conservative treatment. Fluoroscopy was used to optimize visualization of the needle placement and to maximize safety. PROCEDURE DESCRIPTION / TECHNIQUE: The patient was seen and identified in the preoperative area. Risks, benefits, complications including but not limited to infections ,bleeding ,allergic reaction to the medications ,nerve damage and not complete pain releife , and alternatives were discussed with the patient. The patient agreed to proceed with the procedure and signed the consent. IV was started, and vital signs were stable. Patient was taken to the OR and time out was completed. The patient was placed in the prone position on procedure table and a pillow was placed under the abdomen to reduce lumbar lordosis. The lumbosacral area was prepped and draped in the usual sterile fashion.ere closely monitored during the procedure. C onscious sedation was used during the procedure to decrease patients anxiety. Vital signs was monitered during the entire procedure. Using anterior-posterior fluoroscopy, the L4-5 interlaminar space was identified and the skin over this site was marked and then infiltrated with 1% lidocaine subcutaneously. Subsequently, a 22-gauge Tuohy epidural needle was inserted and advanced toward the epidural space using the ``Loss of resistance technique and guided by AP and lateral fluoroscopy. The correct needle position in the epidural space was verified with the injection of 2 mL of the water soluble contrast dye Isovue 200 contrast and observing an excellent epidurogram with the epidural spread of the dye, after negative aspiration for blood and CSF and in the absence of paresthesias. Again after negative aspiration, a 6 ml mixture containing 40 mg of Depo-medrol , and 2 ml of preservative free Normal Saline, and 2 ml of preservative free lidocaine 1% solution was injected and a washout of epidurogram was seen. Needle was withdrawn intact, skin was cleansed, and bandages were applied. COMPLICATIONS: None DISPOSITION / PLANS: The patient was placed in a supine position and transferred to the recovery area in a stable condition for observation. There was no evidence of lower extremity motor or sensory deficit after the procedure. Patient was discharged from the recovery room after meeting discharge criteria. Home discharge instructions were given to the patient by the staff. The patient was reexamined prior to discharge. The patient will schedule a follow up in the clinic in 2-4 weeks.
[2021-08-20 08:25] LABS: Glucose,Whole Blood 111 mg/dL (75-99)
[2021-08-20] MEDS ORDERED: IV FLUID CONTINUATION 1,000 ML IV ONE (08:29)
[2021-08-20 08:32] VITALS: RESP 16
[2021-08-20 08:48] VITALS: BP 119/64; PULSE 70
--- NOTE | 2021-08-20 10:20 | FL ---
EXAMINATION TYPE: FL guided pain mgmt statistic DATE OF EXAM: 08/20/2021 FLUOROSCOPY Fluoroscopy time of 1 seconds was used during lumbar epidural injection. 1 image/s document/s the pr alok.
== END 2021-08-20 08:59 | disposition home or self-care (01) ==
LOC: ORPAIN 07:28
PROVIDERS: ATTEND Specialist
DX: M51.16 Intervertebral disc disorders with radiculopathy, lumbar region (principal); M47.26 Other spondylosis with radiculopathy, lumbar region; Z88.6 Allergy status to analgesic agent
CPT/HCPCS: 62323; J2250; J1030; J3010; Q9966; 99152

== ENCOUNTER → 2021-09-14 | Outpatient (CLI) | payer MEDICARE ==
[2021-09-14 11:54] LABS: Appearance,Urine Clear (Clear); Bilirubin,Urine Negative (Negative); Blood,Urine Negative (Negative); Color,Urine Light Yellow; Glucose,Urine (UA) Negative (Negative); Ketones,Urine Negative (Negative); Leukocyte Esterase,Urine Negative (Negative); Nitrite,Urine Negative (Negative); Protein,Urine Negative (Negative); Specific Gravity,Urine 1.004 (1.001-1.035); Urobilinogen,Urine <2.0 mg/dL (<2.0)
[2021-09-14 12:02] LABS: Partial Thromboplastin Time 22.8 sec (22.0-30.0); Prothrombin Time 10.4 sec (9.0-12.0)
--- NOTE | 2021-09-14 16:09 | XR ---
EXAMINATION TYPE: XR chest 2V DATE OF EXAM: 09/14/2021 COMPARISON: X-ray dated 05/05/2014 HISTORY: Presurgical TECHNIQUE: Frontal and lateral views of the chest are obtained. FINDINGS: Grossly unremarkable lungs. No pleural effusion or pneumothorax. No cardiomegaly. Mild degenerative c hanges of the thoracic spine. IMPRESSION: No significant pulmonary abnormality identified.
[2021-09-14 18:41] LABS: Basophils # (A) 0.04 X 10*3/uL (0.00-0.10); Basophils % (A) 0.5 %; Eosinophils # (A) 0.12 X 10*3/uL (0.04-0.35); Eosinophils % (A) 1.6 %; HCT 40.3 % (37.2-46.3); HGB 12.6 g/dL (12.0-15.0); Immature Grans, Automated 0.3 %; Lymphocytes # (A) 2.93 X 10*3/uL (0.90-5.00); Lymphocytes % (A) 39.4 %; MCHC 31.3 g/dL (32.0-37.0); MCV 89.6 fL (80.0-97.0); Mean Platelet Volume 10.9 fL (9.5-12.2); Monocytes # (A) 0.51 X 10*3/uL (0.20-1.00); Monocytes % (A) 6.9 %; NRBC Per 100 WBC 0 /100 WBCS (0.0-0.0); Neutrophils # (A) 3.82 X 10*3/uL (1.80-7.70); Neutrophils % (A) 51.3 %; Platelet Count 197 X 10*3/uL (140-440); RDW 13.1 % (11.5-14.5); WBC 7.44 X 10*3/uL (4.50-10.00)
[2021-09-14 18:56] LABS: African American GFR (CKD) 59.8 (60.0-200.0); Albumin 4.7 g/dL (3.8-4.9); Albumin/Globulin Ratio 1.85 (1.60-3.17); Anion Gap 13.2 mmol/L (10.00-18.00); BUN/Creat Ratio 16.39 Ratio (12.00-20.00); Blood Urea Nitrogen 17.7 mg/dL (9.0-27.0); Calcium 9.7 mg/dL (8.7-10.3); Carbon Dioxide 24.4 mmol/L (20.0-27.5); Globulin 2.5 g/dL (1.6-3.3); Non-African American GFR(CKD) 51.6 (60.0-200.0); Potassium 4.2 mmol/L (3.5-5.5); Total Bilirubin 0.5 mg/dL (0.30-1.20); Total Protein 7.2 g/dL (6.2-8.2)
== END | disposition home or self-care (01) ==
LOC: LABPAT 11:04
PROVIDERS: ATTEND Orthopaedic Surgery Orthopaedic Surgery of the Spine
DX: Z01.818 Encounter for other preprocedural examination (principal); M48.061 Spinal stenosis, lumbar region without neurogenic claudication; R94.31 Abnormal electrocardiogram [ECG] [EKG]
CPT/HCPCS: 71046; 80053; 81003; 85025; 85610; 85730; 87070; 93005

== ENCOUNTER 2021-09-23 06:37 | Inpatient (IN) | payer MEDICARE ==
[2021-09-17 09:28] VITALS: BMI 32.5
[~2021-09-23 06:37] MED LIST changes: +DEXAMETHASONE SOD PHOSPHATE 4 MG/ML 1 ML VIAL IV ONE; -LACTATED RINGERS 1,000 ML IV SCH; -LIDOCAINE 1% (10MG/ML) FOR IV START INTRADERMA PRN; +MIDAZOLAM 2 MG/2 ML VIAL IV PRN; +ONDANSETRON 4 MG/2 ML VIAL IVP ONE; +ceFAZolin 1,000 MG in SODIUM CHLORIDE 0.9% IRRIGATIO 1,000 ML IRRIGATION PRN
[2021-09-23 07:43] LABS: Glucose,Whole Blood 125 mg/dL (70-110)
[2021-09-23] MEDS: LACTATED RINGERS 1,000 ML IV SCH (07:51)
[2021-09-23] MEDS ORDERED: fentaNYL (PF) 50 MCG/ML 2 ML AMP ONE (07:55)
[2021-09-23] MEDS ORDERED: PROPOFOL 10 MG/ML 20 ML VIAL IV ONE (07:55)
[2021-09-23] MEDS ORDERED: LIDOCAINE 2% INJ 20 MG/ML (2 ML VIAL) ONE (07:55)
[2021-09-23] MEDS ORDERED: NEOSTIGMINE 1 MG/ML 10 ML VIAL ONE (07:55)
[2021-09-23] MEDS ORDERED: ROCURONIUM 10 MG/ML (5 ML VIAL) IV ONE (07:55)
[2021-09-23] MEDS ORDERED: PHENYLEPHRINE-0.9% NACL SYG 1,000 MCG/10 ML SYRINGE ONE (07:55)
[2021-09-23] MEDS ORDERED: MIDAZOLAM 2 MG/2 ML VIAL ONE (07:55)
[2021-09-23] MEDS ORDERED: GLYCOPYRROLATE 0.2 MG/ML 2 ML VIAL ONE (07:55)
[2021-09-23] MEDS ORDERED: HYDROmorphone (PF) 1 MG/ML ONE (07:55)
[2021-09-23] MEDS ORDERED: SUCCINYLCHOLINE CHLORIDE 100 MG/5 ML SYR IV ONE (07:55)
[2021-09-23] MEDS ORDERED: GELATIN SPONGE,ABSORB (LARGE) 1 EACH SPONGE TOPICAL ONE (08:00)
[2021-09-23] MEDS ORDERED: LIDOCAINE 0.5%-EPI 1:200,000 50 ML VIAL SQ ONE (08:00)
[2021-09-23] MEDS ORDERED: THROMBIN (BOVINE) 5,000 UNIT VIAL TOPICAL ONE (08:00)
[2021-09-23] MEDS ORDERED: LACTATED RINGERS 1,000 ML IV ONE (09:55)
[2021-09-23] MEDS ORDERED: BENZOCAINE/MENTHOL LOZENG 1 EACH LOZENGE MUCOUS MEM PRN (10:51)
[2021-09-23] MEDS ORDERED: ONDANSETRON 4 MG/2 ML VIAL IVP PRN (10:51)
[2021-09-23] MEDS ORDERED: GABAPENTIN 300 MG CAP PO PRN (10:57)
[2021-09-23] MEDS ORDERED: Acetaminophen-Codeine 300-30mg TAB PO PRN (10:57)
--- NOTE | 2021-09-23 10:57 | P.OP ---
Date of Procedure: 09/23/21 Preoperative Diagnosis: Spinal stenosis L4 5, retrolisthesis L4 5, degenerative disc disease, low back pain, facet arthrosis, lower extremity radiculopathy Postoperative Diagnosis: Same Anesthesia: GETA Pathology: none sent Condition: stable Description of Procedure: DESCRIPTION OF PROCEDURE(S): BRIEF OPERATIVE NOTE Preoperative Diagnosis: Spinal stenosis L4 5, retrolisthesis L4 5, degenerative disc disease, low back pain, facet arthrosis, lower extremity radiculopathy Postoperative Diagnosis: Same Procedure: Laminectomy and decompression L4 [address] navigation aided Minimally invasive Posterior lateral decompression and facet fusion L4 5 Minimally invasive Transforaminal lumbar interbody fusion for a 360 fusion L4 5 Discectomy for decompression L4 5 Placement of interbody graft L4 5 Use of computer navigation for fusion Local autogenous bone grafting Aspiration of bone marrow from the vertebral body pedicle L4 the right Use of bone graft extenders Surgeon: Dr. Lubin Grinding Machine Operator Portable: Connor ORTIZ who is present throughout the entire the case persistence during positioning, dissection, exposure, visualization, and all crucial elements of the case as well as closure. Anesthesia: General anesthesia Estimated blood loss: Approximately 200 mL Complications: None apparent Components implanted: K2M minimally invasive [place] pedicle screw system withscrews measuring 6.5 mm in diameter to rods one [place] interbody cage with 10 mL of osteo amp bio4 bone graft substitute and 30 mL of the BX bone fibers to supplement the local autogenous bone graft and bone marrow aspirate Disposition: To recovery room in good stable condition. OPERATIVE INDICATIONS The patient has had severe issues at their lower extremity in her lower back over the past several years with significant worsening over the past several mon ths. Over the past few months the patient had pain at their back and their lower extremities. The patient is having severe radicular symptoms at their lower extremity with weakness. The patient is having significant pain in their back. They are unable to obtain any comfort. We did aggressive conservative treatment with medications therapy and interventional pain management however thery were not having any relief. The patient also showed evidence of a listhesis with some dynamic instability with retrolisthesis at L4 5. The patient has been through conservative treatment. We discussed various treatment options including surgery, and the patient wishes to proceed with surgery We discussed the risk, patient's alternatives and benefits of surgery including but not limited to, risk of bleeding risk of infection, risk of need for further surgery, risk of decreased, loss of motion, muscle function, malunion nonunion, hardware failure, nerve damage, paralysis, heart attack, blindness and . They understood issues with the current pandemic and the possibility of exposure. OPERATIVE SUMMARY After discussing all the risks, patient alternatives and benefits at length, the patient elected to proceed with surgical intervention, signed informed consent, and presented for their procedure. The patient was seen and examined in the preoperative holding area and the surgical site was marked. The patient was given antibiotics and brought to the operating room. The patient was sedated and intubated by anesthesia in standard fashion. The patient was positioned on to the operating room table in a prone position on the appropriate frame which was well-padded and well molded. We were careful to pad any bony prominences and pressure points. We were careful to maintain the p atient's cervical spine and good neutral alignment and position throughout. The patient was prepped and draped in a normal standard fashion. An appropriate timeout and keystone protocol performed. We were able to proceed with the surgery. The local wound area was infiltrated with local anesthetic. Over the right iliac crest I was able to make small stab incisions and establish a guidepin screw fixation to the iliac crest 2. I was able place the computer referencing device over the guidepins to establish an appropriate reference point for the Ziem CT navigation. We then were able to place patient in an appropriate drape and do a navigation spin for visualization and 3-D reconstruction of the lumbar spine. I was able utilize C-arm guidance and navigation to establish appropriate position over the pedicles bilaterally at the appropriate levels . With the appropriate levels confirmed was able to make small incisions over the appropriate pedicle sites bilaterally. Utilizing the computer navigation device I was able to establish bony landmarks at the right iliac crest for a bony reference point for the navigation device. I was able to establish a Jamshidi needle over the lateral aspect of the pedicle and advanced the trocar into the pedicle being careful not to breech superiorly inferiorly medially or laterally using computer navigation device. Position was confirmed regularly with AP and lateral images on C-arm and with the computer navigation device at the appropriate levels bilaterally at L4 and L5. I was able to establish the trocar into the pedicle appropriately into the posterior aspect of the vertebral body bilaterally at the appropriate levels. This was done at each of the pedicle positions and each of the vertebrae. At the superior vertebrae and L4 on the right I was able to take approximately 25 mL of bone aspiration for use later in the case to supplement the allograft and autograft bone. I was able place the guidewire into the trocar and into the vertebral body appropriately under C-arm guidance. Dissection was taken down over the wire to the appropriate starting position for the screw placed. The appropriate length screw was chosen, threaded over the guidewire and screwed appropriately into the pedicle and vertebral body under C-arm guidance in excellent alignment and position with good bony purchase. This is done at each of the screw sites at the appropriate levels at L4 and L5 bilaterally. With the screws intact I extended the incision to connect the screw hole sites on the most symptomatic side on the right. I dissected down to establish access over the pars and lamina to the base of the spinous process. I was able to expose the facet joint. The capsule the facet was taken down and showed some facet arthrosis at the joint. I was able to use a combination of curettes and Kerrison rongeurs and a high-speed drill to take down the facet joint and do a facetectomy. I was able get excellent foraminal decompression and central decompression with undermining across midline to perform a laminectomy centrally and contralaterally. I was able get good central decompression. The ligamentum flavum was taken down to further decompress centrally and at bilateral neural foramen. I was able to expose the disc space and visualize the traversing nerve root. Note was made of some disc protrusion and disc herniation that was abutting the traversing nerve root at the level causing further compression of the nerve root. I was able to establish a annulotomy at the appropriate level protecting soft tissue and neural structures. Note was made of some severe disc desiccation at the disc. I performed a complete discectomy with accommodation of curettes and rasps and scrapers. I was able get good endplate preparation at the disc space. I sized for the appropriate size interbody spacer protecting the soft tissue and neural structures. The wound was copiously irrigated and suctioned dry. There is no evidence of any dural tear or leak. I was able to pack the disc space with local autogenous bone graft as well as a small amount of bone graft which was also placed into the interbody cage itself. Protecting the soft tissue structures and neural structures I was able place the interbody cage in good alignment and good position with good fit and fill at the interbody space at L4 5. Position was confirmed with C-arm guidance. Good hemostasis maintained. There is no evidence of any dural tear or leak. The wound was irrigated and suctioned dry. With the hardware intact, intraoperative C-arm imaging was again taken which showed good alignment and position of the hardware at the appropriate levels at L4 5. We were then able to measure, contour and place the rods and appropriate hardware bilaterally. I was able to place capcrews, tighten them down, and torque them with the torque screwdriver appropriately. With this intact I was able to place the local autogenous bone graft with additional bone graft enhancer as necessary into the posterior lateral gutters over the decorticated transverse processes and facet joints on the contralateral side. The remainder of the bone graft was placed over the facet joint on the contralateral side after taking down the facet joint capsule. With the bone graft intact, a stable construct, and good decompression at the appropriate levels, we were able to proceed with closure. Good hemostasis was maintained. There is no evidence of dural tear or leak. The fascia was closed for a watertight closure. he subcuticular tissue was closed with absorbable suture. The wound was cleaned and dried and dressed with the appropriate dressing. The drapes were broken down. The patient was gently rolled back onto their hospital bed being careful to maintain their cervical spine and good neutral alignment and position. They were woken up by anesthesia, extubated, and brought to the recovery room in good stable condition. The patient will be admitted to the hospital for appropriate postoperative care, medical management and monitoring. We will continue to follow them closely about the postoperative course.
[2021-09-23] MEDS: HYDROmorphone 0.5 MG/0.5 ML SYRINGE IVP PRN ×3 (11:16→11:50)
--- NOTE | 2021-09-23 11:22 | FL ---
Fluoroscopy HISTORY: Spinal stenosis 15 seconds fluoroscopy time supplied to the referring clinician. 1 intraoperative C-arm images docum ent the procedure. See dictated report from orthopedic surgery.
[2021-09-23] MEDS ORDERED: ONDANSETRON 4 MG/2 ML VIAL IVP ONE (11:30)
[2021-09-23] MEDS ORDERED: SODIUM CHLORIDE 0.9% 1,000 ML IV ONE (12:00)
--- NOTE | 2021-09-23 12:26 | XR ---
Limited lumbar spine HISTORY: Lumbar fusion 1 Intraoperative C-arm image documents the procedure.
[2021-09-23] MEDS: HYDROmorphone 1 MG/ML 1 ML SYRINGE IVP PRN (13:46)
[2021-09-23] MEDS: HYDROcodone/APAP 5-325MG 1 EACH TAB PO PRN ×2 (15:57→20:31)
[2021-09-23] MEDS: SODIUM CHLORIDE 0.9% 1,000 ML IV SCH ×2 (16:00→20:31)
[2021-09-23 17:18] LABS: Glucose,Whole Blood 158 mg/dL (70-110)
[2021-09-23] MEDS: metFORMIN 500 MG TAB PO SCH (17:23)
[2021-09-23] MEDS: GLIMEPIRIDE 1 MG TAB PO SCH (17:23)
[2021-09-23] MEDS: ATORVASTATIN 10 MG TAB PO SCH (20:31)
[2021-09-24] MEDS: HYDROmorphone 0.5 MG/0.5 ML SYRINGE IVP PRN ×2 (00:10→17:49)
[2021-09-24] MEDS: HYDROcodone/APAP 5-325MG 1 EACH TAB PO PRN ×4 (04:32→23:38)
[2021-09-24] MEDS: LACTATED RINGERS 1,000 ML IV SCH (05:57)
[2021-09-24] MEDS: LEVOTHYROXINE 112 MCG TAB PO SCH (05:58)
--- NOTE | 2021-09-24 08:17 | P.PN ---
Progress Note - Text Progress Note Date: 09/24/21 Postoperative day #1 Patient is seen and examined today at bedside. The patient has some pain around the surgical site as expected. Pain is being controlled with medication. She is already sitting up at the side of her bed eating her breakfast well. She says her leg symptoms are improving already. Physical Exam Afebrile with stable vital signs Abdomen is soft nontender. Chest has good excursion deep and space expiration The incision site is clean dry and intact. No erythema there is no purulence. The dressing is clear without any significant swelling or drainage Extremities have not had neurologic change from prior to surgery. She has good sustained dorsal flexion plantarflexion and EHL intact bilaterally Calves and thighs were soft nontender without evidence of DVT. Assessment/Plan Postoperative day 1 status post minimally invasive decompression fusion L4 5 for her spinal stenosis and degenerative disc disease with lower extremity radiculopathy Patient is progressing as expected from the surgery. She feels her leg is making improvement and we are encouraged thus far with her mobility We will continue to increase the patient's mobilization with therapy. We will continue pain control with oral or IV medications. She feels that only likely that she'll be able to be discharged home tomorrow. We'll continue to follow patient closely.
[2021-09-24] MEDS: lisinopriL 20 MG TAB PO SCH ×2 (08:48→09:04)
[2021-09-24] MEDS: SENNOSIDES-DOCUSATE SODIUM 1 EACH TAB PO SCH (08:48)
[2021-09-24] MEDS: MULTIVITAMINS, THERA 1 EACH TAB PO SCH ×2 (08:48→09:04)
[2021-09-24] MEDS: CYCLOBENZAPRINE 10 MG TAB PO PRN ×2 (09:13→17:49)
[2021-09-24 10:15] LABS: Basophils # (A) 0.01 X 10*3/uL (0.00-0.10); Basophils % (A) 0.1 %; Eosinophils # (A) 0.01 X 10*3/uL (0.04-0.35); Eosinophils % (A) 0.1 %; HCT 33.4 % (37.2-46.3); HGB 10.8 g/dL (12.0-15.0); Immature Grans, Automated 0.4 %; Lymphocytes % (A) 14.1 %; MCH 28.4 pg (27.0-32.0); MCHC 32.3 g/dL (32.0-37.0); MCV 87.9 fL (80.0-97.0); Mean Platelet Volume 10.8 fL (9.5-12.2); Monocytes # (A) 0.94 X 10*3/uL (0.20-1.00); Monocytes % (A) 8.3 %; NRBC Per 100 WBC 0 /100 WBCS (0.0-0.0); Neutrophils # (A) 8.74 X 10*3/uL (1.80-7.70); Platelet Count 161 X 10*3/uL (140-440); WBC 11.34 X 10*3/uL (4.50-10.00)
[2021-09-24 10:30] LABS: African American GFR (CKD) 65.6 (60.0-200.0); Anion Gap 11.4 mmol/L (10.00-18.00); BUN/Creat Ratio 15.4 Ratio (12.00-20.00); Blood Urea Nitrogen 15.4 mg/dL (9.0-27.0); Calcium 8.8 mg/dL (8.7-10.3); Carbon Dioxide 23.6 mmol/L (20.0-27.5); Non-African American GFR(CKD) 56.6 (60.0-200.0); Potassium 4.2 mmol/L (3.5-5.5)
[2021-09-24 11:19] LABS: Glucose,Whole Blood 118 mg/dL (70-110)
[2021-09-24] MEDS: INSULIN ASPART (NovoLOG) 100 UNIT/ML VIAL SQ SCH ×3 (11:58→21:57)
[2021-09-24] MEDS: SODIUM CHLORIDE 0.9% 1,000 ML IV SCH (11:59)
[2021-09-24 12:00] VITALS: RESP 16
--- NOTE | 2021-09-24 14:15 | P.CONS ---
History of Present Illness - Reason for Consult Consult date: 09/24/21 Medical management, hx of diabetes, htn, postop decompression L4-5 - History of Present Illness This is a pleasant 70-year-old female who was recently admitted under Dr. Lubin orthopedic services to undergo decompression fusion of L4-5 and is being closely monitored. Patient does have a past medical history of spinal stenosis along with degenerative disc disease and lower extremity radiculopathy and opted for surgical intervention. Patient does follow with Dr. Prajapati in the outpatient setting for diabetes and hypertension and we are consulted for medical management. Patient does have history of asthma, diabetes mellitus, hypertension, thyroid disorder, bilateral lower extremity neuropathy. Patient denies smoking, alcohol, or illicit drug use. Patient is postop day #1 and continues with some soreness although manageable and has been up and working with physical therapy. Will obtain basic labs and resume patient's medications. Recommend Accu-Cheks before meals and at bedtime and we'll continue to follow with orthopedics. Review of systems: Constitutional: No reports of fatigue, fever, or chills Cardiovascular: No reports of chest pain or palpitations Respiratory: No reports of shortness of breath or cough GI: No reports of nausea, vomiting, or diarrhea : No reports of dysuria or retention Neurovascular: No reports of weakness or numbness, reports lower back discomfort All medications have been reviewed Active Medications Acetaminophen/Codeine Phosphate (Acetaminophen-Codeine 300-30mg Tab) 1 each PO Q6H PRN PRN Reason: Pain Stop: 10/23/21 10:58 Hydrocodone Bitart/Acetaminophen (Hydrocodone/Apap 5-325mg 1 Each Tab) 1 each PO Q4HR PRN PRN Reason: Pain Stop: 10/23/21 10:52 Last Admin: 09/24/21 14:05 Dose: 1 each Atorvastatin Calcium (Atorvastatin 10 Mg Tab) 10 mg PO HS [facility] Stop: 10/23/21 21:01 Last Admin: 09/23/21 20:31 Dose: 10 mg Benzocaine/Menthol (Benzocaine/Menthol Lozeng 1 Each Lozenge) 1 each MUCOUS MEM Q4HR PRN PRN Reason: Sore Throat Stop: 10/23/21 10:52 Cyclobenzaprine HCl (Cyclobenzaprine 10 Mg Tab) 10 mg PO TID PRN PRN Reason: Muscle Spasm Stop: 10/23/21 10:52 Last Admin: 09/24/21 09:13 Dose: 10 mg Gabapentin (Gabapentin 300 Mg Cap) 600 mg PO BID PRN PRN Reason: NEUROPATHY Stop: 10/23/21 10:58 Glimepiride (Glimepiride 1 Mg Tab) 1 mg PO W/SUPPER [facility] Stop: 10/23/21 17:31 Last Admin: 09/23/21 17:23 Dose: 1 mg Hydromorphone HCl (Hydromorphone 0.5 Mg/0.5 Ml Syringe) 0.5 mg IVP Q4HR PRN PRN Reason: Pain Stop: 10/23/21 10:52 Last Admin: 09/24/21 00:10 Dose: 0.5 mg Hydromorphone HCl (Hydromorphone 1 Mg/Ml 1 Ml Syringe) 1 mg IVP Q4HR PRN PRN Reason: Pain Stop: 10/23/21 10:52 Last Admin: 09/23/21 13:46 Dose: 1 mg Lactated Ringer's (Lactated Ringers) 1,000 mls @ 20 mls/hr IV .Q24H [facility] Stop: 10/23/21 06:36 Last Admin: 09/24/21 05:57 Dose: Not Given Sodium Chloride (Saline 0.9%) 1,000 mls @ 75 mls/hr IV .[id number] [facility] Stop: 10/23/21 11:01 Last Admin: 09/24/21 11:59 Dose: Not Given Insulin Aspart (Insulin Aspart (Novolog) 100 Unit/Ml Vial) 0 unit SQ [facility]; Protocol Last Admin: 09/24/21 11:58 Dose: Not Given Levothyroxine Sodium (Levothyroxine 112 Mcg Tab) 112 mcg PO DAILY@0630 [facility] Last Admin: 09/24/21 05:58 Dose: 112 mcg Lisinopril (Lisinopril 20 Mg Tab) 20 mg PO DAILY [facility] Stop: 10/24/21 09:01 Last Admin: 09/24/21 09:04 Dose: 20 mg Metformin HCl (Metformin 500 Mg Tab) 500 mg PO W/SUPPER [facility] Stop: 10/23/21 17:31 Last Admin: 09/23/21 17:23 Dose: 500 mg Multivitamins (Multivitamins, Thera 1 Each Tab) 1 each PO DAILY [facility] Stop: 10/24/21 09:01 Last Admin: 09/24/21 09:04 Dose: 1 each Ondansetron HCl (Ondansetron 4 Mg/2 Ml Vial) 4 mg IVP Q8HR PRN PRN Reason: Nausea And Vomiting Stop: 10/23/21 10:52 Senna/Docusate Sodium (Sennosides-Docusate Sodium 1 Each Tab) 1 each PO DAILY [facility] Stop: 10/24/21 09:01 Last Admin: 09/24/21 08:48 Dose: 1 each Physical exam: Gen: This is a 70-year-old female awake, alert and oriented 3, well-developed, well-nourished, currently sitting up in the chair HEENT: Head is atraumatic, normocephalic. Pupils equal, round. Sclerae is anicteric. NECK: Supple. No JVD. No lymphadenopathy. No thyromegaly. LUNGS: Clear to auscultation. No wheezes or rhonchi. No intercostal retractions. HEART: Regular rate and rhythm. No murmur. ABDOMEN: Soft. Bowel sounds are present. No masses. No tenderness. EXTREMITIES: No pedal edema. No calf tenderness. NEUROLOGICAL: Patient is awake, alert and oriented x3. Cranial nerves 2 through 12 are grossly intact. Assessment: Spinal stenosis of L4-5 with retrolisthesis of L4-5 status post laminectomy and decompression L4-5 postop day #1 Leukocytosis, most likely reactive secondary to surgery Degenerative disc disease Lower extremity radiculopathy Diabetes mellitus, type II Hypertension GI prophylaxis DVT prophylaxis Full code Plan: Recommend to continue with current pain management and DVT prophylaxis per orthopedics Labs reviewed with mild leukocytosis 11.34 on WBC most likely reactive recommend follow-up labs outpatient Recommend Accu-Cheks before meals and at bedtime and may use sliding scale as needed Recommend resuming home medications and blood pressure medications and monitoring vital signs every shift Monitor for fevers and use Tylenol as needed Encourage incentive spirometer use at least 10 times every hour while awake and continuing to cough and deep breathe Physical therapy evaluation We will continue to monitor and follow with orthopedics during hospitalization. Thank you for this consultation. Possible discharge in 24 hours per orthopedics The impression and plan of care has been dictated by Graciela Boyce, Nurse Practitioner as directed. Dr. Abe MD I have performed a history and examination and MDM of this patient, discussed the same with the dictator, and agree with the dictator's assessment and plan as written ,documented as a scribe. Based on total visit time, I have performed more than 50% of the visit. Past Medical History Past Medical History: Asthma, Diabetes Mellitus, Hypertension, Musculoskeletal Disorder, Renal Disease, Thyroid Disorder Additional Past Medical History / Comment(s): neuropathy BLE., asthma (no rx)., irritable bowel/diarrhea, states pinched nerve in back, states abnormal kidney function tests - Dr Alo baca., using walker and cane prn back pain. History of Any Multi-Drug Resistant Organisms: None Reported Past Surgical History: Bladder Surgery, Hysterectomy, Orthopedic Surgery, Tubal Ligation Additional Past Surgical History / Comment(s): D&C, bladder suspension with mesh, ruptured tendon surgery both feet., cataracts, partial hysterectomy. Lumbar epidural inj Past Anesthesia/Blood Transfusion Reactions: No Reported Reaction Past Psychological History: No Psychological Hx Reported Smoking Status: Never smoker Past Alcohol Use History: None Reported Past Drug Use History: None Reported - Past Family History Mother Family Medical History: Cancer, Deep Vein Thrombosis (DVT) Additional Family Medical History / Comment(s): vulvar cancer, leukemia, skin cancer, bladder cancer Medications and Allergies Home Medications Medication Instructions Recorded Confirmed Type Atorvastatin [Lipitor] 10 mg PO HS 01/03/17 09/23/21 History Gabapentin [Neurontin] 600 mg PO BID PRN 01/03/17 09/23/21 History Glimepiride [Amaryl] 1 mg PO W/SUPPER 01/03/17 09/23/21 History Levothyroxine Sodium [Synthroid] 112 mcg PO DAILY 01/03/17 09/23/21 History metFORMIN HCL [Glucophage] 500 mg PO W/SUPPER 01/03/17 09/23/21 History lisinopriL [Zestril] 20 mg PO DAILY 08/02/19 09/23/21 History Acetaminophen-Codeine 300-30mg 1 tab PO Q6H PRN 08/19/21 09/23/21 History [Tylenol w/codeine #3] Multivitamin/Iron/Folic Acid 1 each PO DAILY 08/19/21 09/23/21 History [Centrum Women Tablet] HYDROcodone/APAP 5-325MG [[place] 1 tab PO Q4HR PRN 7 Days #42 tab 09/24/21 Rx 5-325] Allergies Allergy/AdvReac Type Severity Reaction Status Date / Time NSAIDS (Non-Steroidal AdvReac Unknown INSTRUCTED Verified 09/23/21 07:25 Anti-Inflamma NOT TO TAKE DUE TO KIDNEY FUNCTION. Physical Exam Vitals: Vital Signs Temp Pulse Pulse Resp BP Pulse Ox 09/24/21 04:51 98.6 F 86 17 93/58 98 09/24/21 02:00 98.6 F 86 17 93/58 98 09/23/21 19:47 98.1 F 93 18 126/71 98 09/23/21 16:02 83 16 132/78 99 09/23/21 15:00 84 16 108/65 97 09/23/21 14:46 79 16 118/70 96 09/23/21 14:19 102 H 16 110/68 96 09/23/21 14:00 88 18 123/70 97 09/23/21 12:45 80 16 127/69 96 09/23/21 12:30 77 16 125/62 99 09/23/21 12:15 71 16 128/70 97 09/23/21 12:00 66 16 126/59 100 09/23/21 11:45 65 16 137/65 100 09/23/21 11:30 68 16 125/66 96 09/23/21 11:17 97.7 F 77 16 127/72 98 09/23/21 11:15 69 16 107/51 100 09/23/21 11:03 69 16 134/71 100 Intake and Output 09/23/21 09/24/21 09/24/21 22:59 06:59 14:59 Intake Total 850 Output Total 900 2425 Balance -50 -2425 Intake: IV 300 Sodium Chloride 0.9% 1, 300 000 ml @ 75 mls/hr IV . [id number] [facility] Rx#:[id number] Intake, IV Titration 50 Amount ceFAZolin 2 gm In Sodium 50 Chloride 0.9% 50 ml @ 100 mls/hr IVPB ONCE PRN Rx# :[id number] Oral 500 Output: Urine 900 2425 Other: Voiding Method Indwelling Catheter # Voids 1 Results CBC & Chem 7: 09/24/21 04:14 09/24/21 04:14 Labs: Abnormal Lab Results - Last 24 Hours (Table) 09/23/21 Range/Units 17:16 POC Glucose (mg/dL) 158 H (70-110) mg/dL
[2021-09-24 17:25] LABS: Glucose,Whole Blood 133 mg/dL (70-110)
[2021-09-24] MEDS: GLIMEPIRIDE 1 MG TAB PO SCH (17:45)
[2021-09-24] MEDS: metFORMIN 500 MG TAB PO SCH (17:46)
[2021-09-24] MEDS ORDERED: VANCOMYCIN IV PER PHARMACY 1 EACH MISC MISCELLANE PRN (19:52)
[2021-09-24 20:06] LABS: Glucose,Whole Blood 116 mg/dL (70-110)
[2021-09-24 20:30] LABS: Basophils # (A) 0.1 k/uL (0-0.2); Basophils % (A) 1 %; Eosinophils # (A) 0.1 k/uL (0-0.7); Eosinophils % (A) 1 %; HCT 38.3 % (34.0-46.0); HGB 12.3 gm/dL (11.4-16.0); Lymphocytes # (A) 2.2 k/uL (1.0-4.8); Lymphocytes % (A) 21 %; MCH 28.7 pg (25.0-35.0); MCHC 32.1 g/dL (31.0-37.0); MCV 89.4 fL (80.0-100.0); Mean Platelet Volume 7.8; Monocytes # (A) 0.6 k/uL (0-1.0); Monocytes % (A) 6 %; Neutrophils # (A) 7.7 k/uL (1.3-7.7); Neutrophils % (A) 71 %; Platelet Count 156 k/uL (150-450); RBC 4.28 m/uL (3.80-5.40); WBC 10.9 k/uL (3.8-10.6)
[2021-09-24] MEDS ORDERED: VANCOMYCIN 1,500 MG in SODIUM CHLORIDE 0.9% 250 ML IVPB ONE (20:30)
[2021-09-24] MEDS: ACETAMINOPHEN TAB 325 MG TAB PO PRN (20:37)
[2021-09-24] MEDS: ATORVASTATIN 10 MG TAB PO SCH (20:37)
[2021-09-25] MEDS: HYDROcodone/APAP 5-325MG 1 EACH TAB PO PRN ×4 (05:16→23:49)
[2021-09-25] MEDS: LEVOTHYROXINE 112 MCG TAB PO SCH (05:16)
[2021-09-25] MEDS: HYDROmorphone 0.5 MG/0.5 ML SYRINGE IVP PRN (06:10)
[2021-09-25 07:19] LABS: Glucose,Whole Blood 127 mg/dL (70-110)
[2021-09-25] MEDS: INSULIN ASPART (NovoLOG) 100 UNIT/ML VIAL SQ SCH ×4 (07:24→21:17)
[2021-09-25] MEDS ORDERED: VANCOMYCIN 1,500 MG in SODIUM CHLORIDE 0.9% 250 ML IVPB SCH (08:00)
--- NOTE | 2021-09-25 08:51 | XR ---
EXAMINATION TYPE: XR chest 1V portable DATE OF EXAM: 09/25/2021 Comparison: 09/14/2021 Clinical History: 70-year-old female with fever Findings: Heart normal size. Aorta and pulmonary vasculature within normal limits. Left is underpenetrated and not well assessed. Unable to exclude some patchy opacity here. Large patient body habitus causes hazy densities. Upper and mid lungs appear clear. Impression: Limited by portable technique and body habitus. Left base is underpenetrated and not well assessed. D ifficult to exclude some atelectasis or early infiltrate here.
[2021-09-25] MEDS: lisinopriL 20 MG TAB PO SCH (08:53)
[2021-09-25] MEDS: SENNOSIDES-DOCUSATE SODIUM 1 EACH TAB PO SCH (08:53)
[2021-09-25] MEDS: MULTIVITAMINS, THERA 1 EACH TAB PO SCH (08:53)
--- NOTE | 2021-09-25 09:00 | P.PN ---
Progress Note - Text Progress Note Date: 09/25/21 Orthopedic Spine History of present illness: Patient is a pleasant 70-year-old female who is seen and examined at the bedside following posterior lateral decompression and fusion performed Tuesday. She was progressing quite well postoperatively but states her pain has been worse overnight and throughout this morning. She did require IV Dilaudid for pain control as morning. She states her pain has increased at the surgical sites of her lumbar spine and into her buttocks. She also had a a temperature elevated to 101. Her current temperature is 99.1 degrees. Chest x-ray was ordered by medicine. Patient was able to ambulate to the restroom twice throughout the night and had significant difficulty while doing so. 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 She does not feel she is ready for discharge home today. Patient does admit to IBS has regular bowel movements. She is voiding without difficulty. Her pain was better controlled with IV Dilaudid this morning. She continues to receive oral [place] and cyclobenzaprine for pain control as well. She is not currently complaining of any lower extremity weakness or radiculopathy bilaterally. She is also being seen by medicine for her other medical diagnoses including hypertension, hypothyroidism, and type 2 diabetes. Physical Exam Lumbar Fusion: Status post surgical day number 2 Patient is awake, alert, and oriented 3 Vital signs stable Good chest excursion with deep inspiration and expiration Dorsiflexion, plantarflexion, and extensor hallucis longus positive sustained bilaterally Patient is able to perform active range of motion of lower extremities independently without significant difficulty No signs or symptoms of DVT; no calf pain; pneumatic cuffs not currently intact bilateral lower extremities Optifoam dressings are clean, dry, and intact over the lumbar spine and right iliac crest; no erythema, purulence, or signs of infection Neurovascularly intact bilaterally lower extremities Assessment: Status post L4-5 minimally invasive posterior lateral decompression and fusion with transforaminal lumbar interbody fusion Low back pain L4-5 retrolisthesis L4-5 spinal stenosis Lumbar degenerative disc disease Lumbar facet arthrosis Hypertension Hypothyroidism Type 2 diabetes Low-grade fever last night at 101 Plan: 1. Ambulate as tolerated; work with Physical Therapy to increase mobilization; patient may continue to use a walker to aid in ambulation; patient has a walker at home 2. Continue pain control with IV and oral medications; will plan to begin weaning the patient off of IV narcotic medication in anticipation for discharge home in the next 1-2 days; will plan to continue pain control with oral [place] and cyclobenzaprine. Prescriptions for [place] 5 mg/325 mg 1 every 4 hours as needed for pain, dispense #42 and cyclobenzaprine 10 mg 1 tab 3 times a day as needed for muscle spasm, dispensed #60 was sent to the [facility] pharmacy located within [facility]. 3. Dressings to remain intact with Optifoam; patient may shower with dressings intact 4. Medical management can continue to manage patient for patient's other medical diagnoses including hypertension, hypothyroidism, type 2 diabetes, and low-grade fever 5. We will continue to follow the patient closely; depending on the patient's progress, we may plan for discharge home as early as tomorrow, 09/26/2021 6. Patient can follow-up with Connor Olmos PA-C or Dr. Presley Lubin at [facility] in 2-3 weeks following discharge
[2021-09-25 10:19] LABS: Appearance,Urine Clear (Clear); Bilirubin,Urine Negative (Negative); Blood,Urine Negative (Negative); Color,Urine Colorless; Glucose,Urine (UA) Negative (Negative); Ketones,Urine Trace (Negative); Leukocyte Esterase,Urine Small (Negative); Nitrite,Urine Negative (Negative); PH, Urine 5.5 (5.0-8.0); Protein,Urine Negative (Negative); Specific Gravity,Urine 1.004 (1.001-1.035); Urobilinogen,Urine <2.0 mg/dL (<2.0); WBC,Urine 5 /hpf (0-5)
[2021-09-25] MEDS: HYDROmorphone 1 MG/ML 1 ML SYRINGE IVP PRN ×2 (11:04→19:52)
[2021-09-25 11:25] LABS: Glucose,Whole Blood 102 mg/dL (70-110)
[2021-09-25] MEDS: ACETAMINOPHEN TAB 325 MG TAB PO PRN (15:40)
[2021-09-25 16:44] LABS: Glucose,Whole Blood 136 mg/dL (70-110)
[2021-09-25] MEDS: metFORMIN 500 MG TAB PO SCH (16:48)
[2021-09-25] MEDS: GLIMEPIRIDE 1 MG TAB PO SCH (16:48)
[2021-09-25] MEDS: CYCLOBENZAPRINE 10 MG TAB PO PRN (16:51)
--- NOTE | 2021-09-25 19:15 | P.PN ---
Subjective Progress Note Date: 09/25/21 - Reason for Consult Consult date: 09/24/21 Medical management, hx of diabetes, htn, postop decompression L4-5 - History of Present Illness This is a pleasant 70-year-old female who was recently admitted under Dr. Lubin orthopedic services to undergo decompression fusion of L4-5 and is being closely monitored. Patient does have a past medical history of spinal stenosis along with degenerative disc disease and lower extremity radiculopathy and opted for surgical intervention. Patient does follow with Dr. Prajapati in the outpatient set ting for diabetes and hypertension and we are consulted for medical management. Patient does have history of asthma, diabetes mellitus, hypertension, thyroid disorder, bilateral lower extremity neuropathy. Patient denies smoking, alcohol, or illicit drug use. Patient is postop day #1 and continues with some soreness although manageable and has been up and working with physical therapy. Will obtain basic labs and resume patient's medications. Recommend Accu-Cheks before meals and at bedtime and we'll continue to follow with orthopedics. 09/25/2021 Patient is seen and evaluated this morning and has been having continued fevers since yesterday afternoon. Patient also reports to increased pain and generalized feeling of exhaustion and not feeling well. Patient feels somewhat more weak today. Septic work up initiated and patient was started on IV vancomycin along with cultures, urine, chest xray, and labs. Infectious disease consulted. Patient encouraged to continue incentive spirometer use. Continue pain control per orthopedics. Patient denies chest pain or palpitations. Will follow up on chest xray and labs in am. Review of systems: Constitutional: reports of fatigue, and fever, with chills Cardiovascular: No reports of chest pain or palpitations Respiratory: reports of mild shortness of breath and occasional cough GI: No reports of nausea, vomiting, or diarrhea : No reports of dysuria or retention Neurovascular: No reports of weakness or numbness, reports lower back discomfort All medications have been reviewed Active Medications Acetaminophen (Acetaminophen Tab 325 Mg Tab) 650 mg PO Q6HR PRN PRN Reason: Fever and/ or Pain Last Admin: 09/25/21 15:40 Dose: 650 mg Acetaminophen/Codeine Phosphate (Acetaminophen-Codeine 300-30mg Tab) 1 each PO Q6H PRN PRN Reason: Pain Stop: 10/23/21 10:58 Hydrocodone Bitart/Acetaminophen (Hydrocodone/Apap 5-325mg 1 Each Tab) 1 each PO Q4HR PRN PRN Reason: Pain Stop: 10/23/21 10:52 Last Admin: 09/25/21 15:33 Dose: 1 each Atorvastatin Calcium (Atorvastatin 10 Mg Tab) 10 mg PO HS [facility] Stop: 10/23/21 21:01 Last Admin: 09/24/21 20:37 Dose: 10 mg Benzocaine/Menthol (Benzocaine/Menthol Lozeng 1 Each Lozenge) 1 each MUCOUS MEM Q4HR PRN PRN Reason: Sore Throat Stop: 10/23/21 10:52 Cyclobenzaprine HCl (Cyclobenzaprine 10 Mg Tab) 10 mg PO TID PRN PRN Reason: Muscle Spasm Stop: 10/23/21 10:52 Last Admin: 09/25/21 16:51 Dose: 10 mg Gabapentin (Gabapentin 300 Mg Cap) 600 mg PO BID PRN PRN Reason: NEUROPATHY Stop: 10/23/21 10:58 Glimepiride (Glimepiride 1 Mg Tab) 1 mg PO W/SUPPER [facility] Stop: 10/23/21 17:31 Last Admin: 09/25/21 16:48 Dose: 1 mg Hydromorphone HCl (Hydromorphone 0.5 Mg/0.5 Ml Syringe) 0.5 mg IVP Q4HR PRN PRN Reason: Pain Stop: 10/23/21 10:52 Last Admin: 09/25/21 06:10 Dose: 0.5 mg Hydromorphone HCl (Hydromorphone 1 Mg/Ml 1 Ml Syringe) 1 mg IVP Q4HR PRN PRN Reason: Pain Stop: 10/23/21 10:52 Last Admin: 09/25/21 11:04 Dose: 1 mg Insulin Aspart (Insulin Aspart (Novolog) 100 Unit/Ml Vial) 0 unit SQ [facility]; Protocol Last Admin: 09/25/21 16:45 Dose: Not Given Levothyroxine Sodium (Levothyroxine 112 Mcg Tab) 112 mcg PO DAILY@0630 [facility] Last Admin: 09/25/21 05:16 Dose: 112 mcg Lisinopril (Lisinopril 20 Mg Tab) 20 mg PO DAILY [facility] Stop: 10/24/21 09:01 Last Admin: 09/25/21 08:53 Dose: 20 mg Metformin HCl (Metformin 500 Mg Tab) 500 mg PO W/SUPPER [facility] Stop: 10/23/21 17:31 Last Admin: 09/25/21 16:48 Dose: 500 mg Multivitamins (Multivitamins, Thera 1 Each Tab) 1 each PO DAILY [facility] Stop: 10/24/21 09:01 Last Admin: 09/25/21 08:53 Dose: 1 each Ondansetron HCl (Ondansetron 4 Mg/2 Ml Vial) 4 mg IVP Q8HR PRN PRN Reason: Nausea And Vomiting Stop: 10/23/21 10:52 Senna/Docusate Sodium (Sennosides-Docusate Sodium 1 Each Tab) 1 each PO DAILY [facility] Stop: 10/24/21 09:01 Last Admin: 09/25/21 08:53 Dose: 1 each Physical exam: Gen: This is a 70-year-old female awake, alert and oriented 3, well-developed, well-nourished, currently sitting up in the chair HEENT: Head is atraumatic, normocephalic. Pupils equal, round. Sclerae is anicteric. NECK: Supple. No JVD. No lymphadenopathy. No thyromegaly. LUNGS: Clear to auscultation. No wheezes or rhonchi. No intercostal retractions. HEART: Regular rate and rhythm. No murmur. ABDOMEN: Soft. Bowel sounds are present. No masses. No tenderness. EXTREMITIES: No pedal edema. No calf tenderness. NEUROLOGICAL: Patient is awake, alert and oriented x3. Cranial nerves 2 through 12 are grossly intact. Pain and tenderness noted in the mid region of the left buttock on movement and palpation Skin: intact and surgical site is dry, clean, and intact with dressing noted. No increasing redness or swelling surrounding. Assessment: Spinal stenosis of L4-5 with retrolisthesis of L4-5 status post laminectomy and decompression L4-5 postop day #1 Leukocytosis, most likely reactive secondary to surgery although patient now having temps and septic workup initiated with ID consulted. Patient was given a dose of vanco and discontinued. Chest xray obtained and displays atelectasis. Will encourage incentive spirometer and chest xray in am. Degenerative disc disease Lower extremity radiculopathy Diabetes mellitus, type II Hypertension GI prophylaxis DVT prophylaxis Full code Plan: Recommend to continue with current pain management and DVT prophylaxis per o rthopedics Labs reviewed with mild leukocytosis 11.34 on WBC most likely reactive recommend follow-up labs outpatient Patient started having fevers and septic work up initiated. Reviewed chest xray and likely atelectasis and WBC is now normal. Will discontinue vanco and cultures,obtained and pending. suspicion for sepsis is low. UA was negative. ID consulted and pending. Procalcitonin, CRP ordered. Recommend Accu-Cheks before meals and at bedtime and may use sliding scale as needed Recommend resuming home medications and blood pressure medications and monitoring vital signs every shift Monitor for fevers and use Tylenol as needed Encourage incentive spirometer use at least 10 times every hour while awake and continuing to cough and deep breathe Physical therapy evaluation Follow up chest xray in the am Labs ordered in am We will continue to monitor and follow with orthopedics during hospitalization. Thank you for this consultation. The impression and plan of care has been dictated by Graciela Boyce, Nurse Practitioner as directed. Dr. Abe MD I have performed a history and examination and MDM of this patient, discussed the same with the dictator, and agree with the dictator's assessment and plan as written ,documented as a scribe. Based on total visit time, I have performed more than 50% of the visit. Objective - Vital Signs Vital signs: Vital Signs Temp 99.1 F 09/25/21 05:00 Pulse 88 09/25/21 05:00 Resp 16 09/25/21 05:00 BP 135/74 09/25/21 05:00 Pulse Ox 92 L 09/25/21 05:00 FiO2 Intake & Output 09/24/21 09/25/21 09/25/21 18:59 06:59 18:59 Intake Total 480 Output Total 600 Balance -120 Intake: Oral 480 Output: Urine 600 Other: Voiding Method Toilet Toilet Toilet # Voids 4 1 - Labs CBC & Chem 7: 09/24/21 20:06 09/25/21 05:32 Labs: Abnormal Lab Results - Last 24 Hours (Table) 09/24/21 09/24/21 09/24/21 Range/Units 04:14 04:14 11:17 WBC 11.34 H (4.50-10.00) X 10*3/uL RBC 3.80 L (4.10-5.20) X 10*6/uL Hgb 10.8 L (12.0-15.0) g/dL Hct 33.4 L (37.2-46.3) % Neutrophils # 8.74 H (1.80-7.70) X 10*3/uL Eosinophils # 0.01 L (0.04-0.35) X 10*3/uL Est GFR (CKD-EPI)NonAf 56.6 L (60.0-200.0) Glucose 121 H (70-110) mg/dL POC Glucose (mg/dL) 118 H (70-110) mg/dL C-Reactive Protein (<1.0) mg/dL Procalcitonin (0.02-0.09) ng/mL 09/24/21 09/24/21 09/24/21 Range/Units 17:22 20:05 20:06 WBC 10.9 H (4.50-10.00) X 10*3/uL RBC (4.10-5.20) X 10*6/uL Hgb (12.0-15.0) g/dL Hct (37.2-46.3) % Neutrophils # (1.80-7.70) X 10*3/uL Eosinophils # (0.04-0.35) X 10*3/uL Est GFR (CKD-EPI)NonAf (60.0-200.0) Glucose (70-110) mg/dL POC Glucose (mg/dL) 133 H 116 H (70-110) mg/dL C-Reactive Protein (<1.0) mg/dL Procalcitonin (0.02-0.09) ng/mL 09/24/21 09/24/21 09/25/21 Range/Units 20:06 20:06 07:18 WBC (4.50-10.00) X 10*3/uL RBC (4.10-5.20) X 10*6/uL Hgb (12.0-15.0) g/dL Hct (37.2-46.3) % Neutrophils # (1.80-7.70) X 10*3/uL Eosinophils # (0.04-0.35) X 10*3/uL Est GFR (CKD-EPI)NonAf (60.0-200.0) Glucose (70-110) mg/dL POC Glucose (mg/dL) 127 H (70-110) mg/dL C-Reactive Protein 7.9 H (<1.0) mg/dL Procalcitonin 0.17 H (0.02-0.09) ng/mL
[2021-09-25] MEDS: ATORVASTATIN 10 MG TAB PO SCH (19:53)
[2021-09-25 20:06] LABS: Glucose,Whole Blood 195 mg/dL (70-110)
--- NOTE | 2021-09-25 23:07 | P.CONS ---
History of Present Illness - Reason for Consult Consult date: 09/25/21 Postop fever Requesting physician: Jenny Muñoz - Chief Complaint Fever 1 day - History of Present Illness Patient is a 70-year-old female with a past medical history pertinent for chronic back pain history of spinal stenosis and degenerative disc disease with lower extremity radiculopathy, patient was electively admitted to the hospital for laminectomy and decompression of the L4-5 along with a facet fusion L4-5 and placement of the interbody graft at L4-5 which was completed on 09/24/2021 the patient was afebrile on presentation to the hospital and mention no fever over the last few days however last night the patient did spike a fever of 101 F that has prompted this infectious disease consultation, as of this morning the patient did have a low-grade fever of 99.1 F patient mention feeling slightly better compared to last night patient denies having any headache or URI symptoms patient denies having any chest pain or shortness of breath minimal cough but not bring up any sputum denies any nausea no vomiting no abdominal pain no diarrhea no urinary symptoms patient did have a mildly elevated vital of 11.34 yesterday no CBC was done today creatinine has been normal urine has been negative chest x-ray this morning difficult to exclude some atelectasis or an early infiltrate, Review of Systems Positive point has been mentioned in the HPI rest of the systems are negative Past Medical History Past Medical History: Asthma, Diabetes Mellitus, Hypertension, Musculoskeletal Disorder, Renal Disease, Thyroid Disorder Additional Past Medical History / Comment(s): neuropathy BLE., asthma (no rx)., irritable bowel/diarrhea, states pinched nerve in back, states abnormal kidney function tests - Dr Alo baca., using walker and cane prn back pain. History of Any Multi-Drug Resistant Organisms: None Reported Past Surgical History: Bladder Surgery, Hysterectomy, Orthopedic Surgery, Tubal Ligation Additional Past Surgical History / Comment(s): D&C, bladder suspension with mesh, ruptured tendon surgery both feet., cataracts, partial hysterectomy. Lumbar epidural inj Past Anesthesia/Blood Transfusion Reactions: No Reported Reaction Past Psychological History: No Psychological Hx Reported Smoking Status: Never smoker Past Alcohol Use History: None Reported Past Drug Use History: None Reported - Past Family History Mother Family Medical History: Cancer, Deep Vein Thrombosis (DVT) Additional Family Medical History / Comment(s): vulvar cancer, leukemia, skin cancer, bladder cancer Medications and Allergies Home Medications Medication Instructions Recorded Confirmed Type Atorvastatin [Lipitor] 10 mg PO HS 01/03/17 09/23/21 History Gabapentin [Neurontin] 600 mg PO BID PRN 01/03/17 09/23/21 History Glimepiride [Amaryl] 1 mg PO W/SUPPER 01/03/17 09/23/21 History Levothyroxine Sodium [Synthroid] 112 mcg PO DAILY 01/03/17 09/23/21 History metFORMIN HCL [Glucophage] 500 mg PO W/SUPPER 01/03/17 09/23/21 History lisinopriL [Zestril] 20 mg PO DAILY 08/02/19 09/23/21 History Acetaminophen-Codeine 300-30mg 1 tab PO Q6H PRN 08/19/21 09/23/21 History [Tylenol w/codeine #3] Multivitamin/Iron/Folic Acid 1 each PO DAILY 08/19/21 09/23/21 History [Centrum Women Tablet] HYDROcodone/APAP 5-325MG [[place] 1 tab PO Q4HR PRN 7 Days #42 tab 09/24/21 Rx 5-325] Cyclobenzaprine [Flexeril] 10 mg PO TID PRN #60 tab 09/25/21 Rx Acetaminophen Tab [Tylenol] 650 mg PO Q6HR PRN tab 09/26/21 Rx Famotidine [Pepcid] 20 mg PO DAILY #30 tablet 09/26/21 Rx Sennosides-Docusate Sodium 1 each PO DAILY tab 09/26/21 Rx [Senokot-S] cefUROXime axetiL [Ceftin] 500 mg PO BID 3 Days #6 tab 09/26/21 Rx Allergies Allergy/AdvReac Type Severity Reaction Status Date / Time NSAIDS (Non-Steroidal AdvReac Unknown INSTRUCTED Verified 09/23/21 07:25 Anti-Inflamma NOT TO TAKE DUE TO KIDNEY FUNCTION. Physical Exam Vitals: Vital Signs Temp Pulse Resp BP Pulse Ox 09/25/21 12:20 99.7 F H 93 16 123/63 94 L 09/25/21 05:00 99.1 F 88 16 135/74 92 L 09/24/21 20:28 99.7 F H 09/24/21 20:27 101 F H 105 H 16 138/65 97 Intake and Output 09/24/21 09/25/21 09/25/21 22:59 06:59 14:59 Intake Total 480 Balance 480 Intake: Oral 480 Other: Voiding Method Toilet Toilet # Voids 4 1 GENERAL DESCRIPTION: Elderly female lying in bed, no distress. No tachypnea or accessory muscle of respiration use. HEENT: Shows Pallor , no scleral icterus. Oral mucous membrane is dry. No pharyngeal erythema or thrush NECK: Trachea central, no thyromegaly. LUNGS: Unlabored breathing. Decreased breath sound at the base HEART: S1, S2, regular rate and rhythm. No loud murmur ABDOMEN: Soft, no tenderness , guarding or rigidity, no organomegaly EXTREMITIES: No edema of feet. SKIN: No rash, no masses palpable. NEUROLOGICAL: The patient is awake, alert, oriented x3, mood and affect normal. Results CBC & Chem 7: 09/26/21 06:29 09/26/21 06:29 Labs: Abnormal Lab Results - Last 24 Hours (Table) 09/24/21 09/24/21 09/24/21 Range/Units 17:22 20:05 20:06 WBC 10.9 H (3.8-10.6) k/uL POC Glucose (mg/dL) 133 H 116 H (70-110) mg/dL C-Reactive Protein (<1.0) mg/dL Procalcitonin (0.02-0.09) ng/mL Urine Ketones (Negative) Ur Leukocyte Esterase (Negative) 09/24/21 09/24/21 09/25/21 Range/Units 20:06 20:06 07:18 WBC (3.8-10.6) k/uL POC Glucose (mg/dL) 127 H (70-110) mg/dL C-Reactive Protein 7.9 H (<1.0) mg/dL Procalcitonin 0.17 H (0.02-0.09) ng/mL Urine Ketones (Negative) Ur Leukocyte Esterase (Negative) 09/25/21 Range/Units 10:05 WBC (3.8-10.6) k/uL POC Glucose (mg/dL) (70-110) mg/dL C-Reactive Protein (<1.0) mg/dL Procalcitonin (0.02-0.09) ng/mL Urine Ketones Trace H (Negative) Ur Leukocyte Esterase Small H (Negative) Assessment and Plan (1) Fever Status: Acute Code(s): R50.9 - FEVER, UNSPECIFIED SNOMED Code(s): 521433845 Plan: 1patient with a postop fever in this patient who did have a laminectomy and decompression of the L4-5 more likely reactive postsurgical versus atelectasis clinically and no obvious focus of infection. 2we will repeat her CBC CRP and a procalcitonin. 3incentive spirometry. 4with a low clinic suspicious for infection etiology we will hold on any systemic antibiotic therapy at this point We will follow on clinical condition and cultures to further adjust medication if needed Thank you for this consultation will follow this patient along with you Time with Patient: Greater than 30
[2021-09-26] MEDS: HYDROmorphone 1 MG/ML 1 ML SYRINGE IVP PRN (02:26)
[2021-09-26] MEDS: HYDROcodone/APAP 5-325MG 1 EACH TAB PO PRN (05:57)
[2021-09-26] MEDS: LEVOTHYROXINE 112 MCG TAB PO SCH (05:57)
--- NOTE | 2021-09-26 06:49 | XR ---
EXAMINATION TYPE: XR chest 1V portable DATE OF EXAM: 09/26/2021 CLINICAL HISTORY: Difficulty breathing progress study. TECHNIQUE: Single AP portable upright view of the chest is obtained. COMPARISON: Chest x-ray from one day earlier and older studies. FINDINGS: Lungs remain grossly clear without pleural effusion or pneumothorax seen bilaterally. Card iac size stable within normal limits. Osseous structures are intact. IMPRESSION: No acute process. No significant change from prior.
[2021-09-26 07:00] LABS: Glucose,Whole Blood 122 mg/dL (70-110)
[2021-09-26 07:30] LABS: ALT 11 U/L (4-34); AST 24 U/L (14-36); African American GFR (CKD) 75 (>60 ml/min/1.73 sqM); Albumin 3.2 g/dL (3.5-5.0); Albumin/Globulin Ratio 1.5; Alkaline Phosphatase 53 U/L (38-126); Anion Gap 3 mmol/L; Blood Urea Nitrogen 13 mg/dL (7-17); Calcium 8.1 mg/dL (8.4-10.2); Carbon Dioxide 30 mmol/L (22-30); Chloride 102 mmol/L (98-107); Globulin 2.2 g/dL; Glucose 115 mg/dL (74-99); Non-African American GFR(CKD) 65 (>60 ml/min/1.73 sqM); Potassium 3.8 mmol/L (3.5-5.1); Sodium 135 mmol/L (137-145); Total Bilirubin 0.6 mg/dL (0.2-1.3); Total Protein 5.4 g/dL (6.3-8.2)
[2021-09-26] MEDS: INSULIN ASPART (NovoLOG) 100 UNIT/ML VIAL SQ SCH ×2 (07:39→11:55)
[2021-09-26] MEDS: MULTIVITAMINS, THERA 1 EACH TAB PO SCH (07:41)
[2021-09-26] MEDS: SENNOSIDES-DOCUSATE SODIUM 1 EACH TAB PO SCH (07:41)
[2021-09-26] MEDS: CYCLOBENZAPRINE 10 MG TAB PO PRN (07:41)
[2021-09-26] MEDS: lisinopriL 20 MG TAB PO SCH (07:41)
[2021-09-26 08:44] LABS: Basophils # (A) 0.02 X 10*3/uL (0.00-0.10); Basophils % (A) 0.2 %; Eosinophils % (A) 1.2 %; HCT 33.7 % (37.2-46.3); HGB 10.6 g/dL (12.0-15.0); Immature Grans, Automated 0.4 %; Lymphocytes # (A) 2.42 X 10*3/uL (0.90-5.00); Lymphocytes % (A) 29.5 %; MCHC 31.5 g/dL (32.0-37.0); MCV 88.9 fL (80.0-97.0); Mean Platelet Volume 10.7 fL (9.5-12.2); Monocytes # (A) 0.63 X 10*3/uL (0.20-1.00); Monocytes % (A) 7.7 %; NRBC Per 100 WBC 0 /100 WBCS (0.0-0.0); Platelet Count 158 X 10*3/uL (140-440); RBC 3.79 X 10*6/uL (4.10-5.20); RDW 12.8 % (11.5-14.5)
[2021-09-26 09:04] LABS: C Reactive Protein 13.1 mg/dL (<1.0)
[2021-09-26] MEDS ORDERED: HYDROcodone/APAP 7.5-325MG 1 EACH TAB PO PRN (10:06)
[2021-09-26 11:04] LABS: Glucose,Whole Blood 129 mg/dL (70-110)
[2021-09-26 12:05] VITALS: BP 110/72; PULSE 83; TEMP 100.1
--- NOTE | 2021-09-26 13:28 | P.PN ---
Subjective Progress Note Date: 09/26/21 This is a pleasant 70-year-old female who was recently admitted under Dr. Lubin orthopedic services to undergo decompression fusion of L4-5 and is being closely monitored. Patient does have a past medical history of spinal stenosis along with degenerative disc disease and lower extremity radiculopathy and opted for surgical intervention. Patient does follow with Dr. Prajapati in the outpatient setting for diabetes and hypertension and we are consulted for medical management. Patient does have history of asthma, diabetes mellitus, hypertension, thyroid disorder, bilateral lower extremity neuropathy. Patient denies smoking, alcohol, or illicit drug use. Patient is postop day #1 and continues with some soreness although manageable and has been up and working with physical therapy. Will obtain basic labs and resume patient's medications. Recommend Accu-Cheks before meals and at bedtime and we'll continue to follow with orthopedics. 09/25/2021 Patient is seen and evaluated this morning and has been having continued fevers since yesterday afternoon. Patient also reports to increased pain and g eneralized feeling of exhaustion and not feeling well. Patient feels somewhat more weak today. Septic work up initiated and patient was started on IV vancomycin along with cultures, urine, chest xray, and labs. Infectious disease consulted. Patient encouraged to continue incentive spirometer use. Continue pain control per orthopedics. Patient denies chest pain or palpitations. Will follow up on chest xray and labs in am. 09/26/2021 Patient was seen in consultation by infectious disease regarding post-operative fever pending complete work up for source of infection with cultures pending however no obvious focal infection found at this time. Patient received a dose of IV vancomycin, and felt no need for systemic antibiotics and patient will be monitored off antibiotics for now. After showing white count 8.20, hemoglobin 10.6, sodium 135, potassium 3.8, BUN 13, creatinine 0.90, blood glucose 126, CRP 13.1. Urinalysis negative for infection nurse trace ketones and small leukocyte Estrace. Repeat chest xray completed this morning showing no acute process. Patient with fever. Patient with temp of 99.6 this morning afebrile throughout the evening. PT evaluation has been completed and patient will be discharged home when medically stable. Review of systems: Constitutional: reports of fatigue, and fever, with chills Cardiovascular: No reports of chest pain or palpitations Respiratory: reports of mild shortness of breath and occasional cough GI: No reports of nausea, vomiting, or diarrhea : No reports of dysuria or retention Neurovascular: No reports of weakness or numbness, reports lower back discomfort All medications have been reviewed Physical exam: Gen: This is a 70-year-old female awake, alert and oriented 3, well-developed, well-nourished, currently sitting up in the chair HEENT: Head is atraumatic, normocephalic. Pupils equal, round. Sclerae is anicteric. NECK: Supple. No JVD. No lymphadenopathy. No thyromegaly. LUNGS: Clear to auscultation. No wheezes or rhonchi. No intercostal retractions. HEART: Regular rate and rhythm. No murmur. ABDOMEN: Soft. Bowel sounds are present. No masses. No tenderness. EXTREMITIES: No pedal edema. No calf tenderness. NEUROLOGICAL: Patient is awake, alert and oriented x3. Cranial nerves 2 through 12 are grossly intact. Pain and tenderness noted in the mid region of the left buttock on movement and palpation Skin: intact and surgical site is dry, clean, and intact with dressing noted. No increasing redness or swelling surrounding. Assessment: Spinal stenosis of L4-5 with retrolisthesis of L4-5 status post laminectomy and decompression L4-5 postop day #2 Leukocytosis, most likely reactive secondary to surgery although patient now having temps, white count has normalized. Currently no focal source of infection found with exception of mild atelectasis on chest xray which has improved on repeat. Degenerative disc disease Lower extremity radiculopathy Diabetes mellitus, type II Hypertension GI prophylaxis DVT prophylaxis Full code Plan: Recommend to continue with current pain management and DVT prophylaxis per orthopedics Patient started having fevers and septic work up initiated. Suspicion for sepsis is low. UA was negative. ID consulted, procalcitonin level 0.16. Recommend Accu-Cheks before meals and at bedtime and may use sliding scale as needed Recommend resuming home medications and blood pressure medications and monitoring vital signs every shift Monitor for fevers and use Tylenol as needed Encourage incentive spirometer use at least 10 times every hour while awake and continuing to cough and deep breathe We will continue to monitor and follow with orthopedics during hospitalization. Thank you for this consultation. The impression and plan of care has been dictated by Sandee Laguerre, Nurse Practitioner as directed. Dr. Abe MD I have performed a history and physical examination and medical decision making of this patient, discussed the same with the dictator, and agree with the dictators assessment and plan as written, documented as a scribe. Based on total visit time, I have performed more than 50% of this visit. Objective - Vital Signs Vital signs: Vital Signs Temp 99.6 F 09/26/21 05:00 Pulse 93 09/26/21 05:00 Resp 16 09/26/21 05:00 BP 112/62 09/26/21 05:00 Pulse Ox 94 L 09/26/21 05:00 FiO2 Intake & Output 09/25/21 09/26/21 09/26/21 18:59 06:59 18:59 Other: Voiding Method Toilet Toilet # Voids 4 3 - Labs CBC & Chem 7: 09/26/21 06:29 09/26/21 06:29 Labs: Abnormal Lab Results - Last 24 Hours (Table) 09/25/21 09/25/21 09/25/21 Range/Units 10:05 16:43 20:05 RBC (4.10-5.20) X 10*6/uL Hgb (12.0-15.0) g/dL Hct (37.2-46.3) % MCHC (32.0-37.0) g/dL Sodium (137-145) mmol/L Glucose (74-99) mg/dL POC Glucose (mg/dL) 136 H 195 H (70-110) mg/dL Calcium (8.4-10.2) mg/dL C-Reactive Protein (<1.0) mg/dL Total Protein (6.3-8.2) g/dL Albumin (3.5-5.0) g/dL Urine Ketones Trace H (Negative) Ur Leukocyte Esterase Small H (Negative) 09/26/21 09/26/21 09/26/21 Range/Units 06:29 06:29 06:58 RBC 3.79 L (4.10-5.20) X 10*6/uL Hgb 10.6 L (12.0-15.0) g/dL Hct 33.7 L (37.2-46.3) % MCHC 31.5 L (32.0-37.0) g/dL Sodium 135 L (137-145) mmol/L Glucose 115 H (74-99) mg/dL POC Glucose (mg/dL) 122 H (70-110) mg/dL Calcium 8.1 L (8.4-10.2) mg/dL C-Reactive Protein 13.1 H (<1.0) mg/dL Total Protein 5.4 L (6.3-8.2) g/dL Albumin 3.2 L (3.5-5.0) g/dL Urine Ketones (Negative) Ur Leukocyte Esterase (Negative) Assessment and Plan Time with Patient: Less than 30
--- NOTE | 2021-09-26 17:16 | P.DS ---
Providers Date of admission: 09/25/21 08:05 Expected date of discharge: 09/26/21 Attending physician: Chrissy Lubin Consults: 09/23/21 10:51 Consult Physician Routine Consulting Provider: Killian Prajapati Consult Reason/Comments: medical managment Do you want consulting provider notified?: Yes 09/24/21 19:50 Consult Physician Routine Consulting Provider: Chapin Brantley Consult Reason/Comments: temp 101, lumbar decompression/fusion 09/23/21 Do you want consulting provider notified?: Yes Primary care physician: Killian Prajapati - Discharge Diagnosis(es) (1) Spinal stenosis at L4-L5 level Patient was admitted to the OR on 09/23/21 to undergo a L4-5 Decompression and Fusion. She had failed conservative measures as an outpatient and desired to proceed with elective surgery after given informed consent. She underwent the above procedure which she tolerated well without complication. Postoperative hospital course has remained without complication. On day of discharge she is afebrile, vital signs stable, labs within acceptable ranges, tolerating by mouth meds and diet, voiding without difficulty, positive flatus, denies abdominal pain or calf pain, pain is controlled on oral pain medication and has no new complaints. Wound is benign, neurovascular status is intact, calf is soft and nontender, abdomen soft and nontender. Review of systems is negative for numbness, tingling, fever, chills, chest pain, shortness of breath, nausea, vomiting, dizziness, headaches, slurred speech or other. Status: Acute Priority: Medium Procedures: L4-5 Decompression and Fusion Patient Condition at Discharge: Good Plan - Discharge Summary Discharge Rx Participant: Yes New Discharge Prescriptions: New HYDROcodone/APAP 5-325MG [Wendel 5-325] 1 tab PO Q4HR PRN 7 Days #42 tab PRN Reason: Pain Cyclobenzaprine [Flexeril] 10 mg PO TID PRN #60 tab PRN Reason: Muscle Spasm Famotidine [Pepcid] 20 mg PO DAILY #30 tablet Sennosides-Docusate Sodium [Senokot-S] 1 each PO DAILY tab Acetaminophen Tab [Tylenol] 650 mg PO Q6HR PRN tab PRN Reason: Fever And/ Or Pain cefUROXime axetiL [Ceftin] 500 mg PO BID 3 Days #6 tab Continue Atorvastatin [Lipitor] 10 mg PO HS Levothyroxine Sodium [Synthroid] 112 mcg PO DAILY Glimepiride [Amaryl] 1 mg PO W/SUPPER Gabapentin [Neurontin] 600 mg PO BID PRN PRN Reason: NEUROPATHY metFORMIN HCL [Glucophage] 500 mg PO W/SUPPER lisinopriL [Zestril] 20 mg PO DAILY Acetaminophen-Codeine 300-30mg [Tylenol w/codeine #3] 1 tab PO Q6H PRN PRN Reason: Pain Multivitamin/Iron/Folic Acid [Centrum Women Tablet] 1 each PO DAILY Discharge Medication List Atorvastatin [Lipitor] 10 mg PO HS 01/03/17 [History] Gabapentin [Neurontin] 600 mg PO BID PRN 01/03/17 [History] Glimepiride [Amaryl] 1 mg PO W/SUPPER 01/03/17 [History] Levothyroxine Sodium [Synthroid] 112 mcg PO DAILY 01/03/17 [History] metFORMIN HCL [Glucophage] 500 mg PO W/SUPPER 01/03/17 [History] lisinopriL [Zestril] 20 mg PO DAILY 08/02/19 [History] Acetaminophen-Codeine 300-30mg [Tylenol w/codeine #3] 1 tab PO Q6H PRN 08/19/21 [History] Multivitamin/Iron/Folic Acid [Centrum Women Tablet] 1 each PO DAILY 08/19/21 [History] HYDROcodone/APAP 5-325MG [Wendel 5-325] 1 tab PO Q4HR PRN 7 Days #42 tab 09/24/21 [Rx] Cyclobenzaprine [Flexeril] 10 mg PO TID PRN #60 tab 09/25/21 [Rx] Acetaminophen Tab [Tylenol] 650 mg PO Q6HR PRN tab 09/26/21 [Rx] Famotidine [Pepcid] 20 mg PO DAILY #30 tablet 09/26/21 [Rx] Sennosides-Docusate Sodium [Senokot-S] 1 each PO DAILY tab 09/26/21 [Rx] cefUROXime axetiL [Ceftin] 500 mg PO BID 3 Days #6 tab 09/26/21 [Rx] Follow up Appointment(s)/Referral(s): Chrissy Lubin DO [Doctor of Osteopathic Medicine] - 2 Weeks (Patient may follow-up with Connor Olmos PA-C or Dr. Presley Lubin at [facility] in 2-3 weeks following discharge. ) Killian Prajapati DO [Primary Care Provider] - 3 Days Ambulatory/Diagnostic Orders: Complete Blood Count w/diff [LAB.AMB] Time Frame: 3 Days, Location: None Selected Patient Instructions/Handouts: Cefuroxime (By mouth), Hydrocodone/Acetaminophen (By mouth), Cyclobenzaprine (By mouth), Lumbar Spinal Stenosis (DC) Activity/Diet/Wound Care/Special Instructions: Keep site clean. May shower with waterproof Optifoarm intact. Do not soak in a tub. After 72 hours postoperatively, patient May remove dressing and then may shower with area uncovered. Leave glue intact and allow it to fray off on its own. May ambulate as tolerated. Avoid heavy or rigorous activity. No repetitive bending twisting or lifting. Take medications as prescribed. Patient may utilize a walker to pharmacy helper in ambulation as needed. No overhead work. Continue to monitor for fever and notifiy surgeon. Continue to use incentive spirometer 10 times an hour while awake. Follow up with primary care in 2-3 days. Repeat labs in 2-3 days. Discharge Disposition: HOME SELF-CARE
--- NOTE | 2021-09-26 22:50 | P.PN ---
Subjective Progress Note Date: 09/26/21 Principal diagnosis: Postop fever Patient is a 70-year-old female electively admitted to the hospital for lumbar spine surgery/and decompression for spinal canal stenosis, postoperatively did have an episode of fever. On today's evaluation that is 09/26/2021, the patient overall fever pattern has improved, patient denies having any chest pain or shortness of cough no nausea no vomiting no abdominal pain or diarrhea lower back pain is currently controlled Objective - Vital Signs Vital signs: Vital Signs Temp 99.6 F 09/26/21 05:00 Pulse 88 09/26/21 08:30 Resp 16 09/26/21 05:00 BP 118/67 09/26/21 08:30 Pulse Ox 94 L 09/26/21 05:00 FiO2 Intake & Output 09/25/21 09/26/21 09/26/21 18:59 06:59 18:59 Other: Voiding Method Toilet Toilet # Voids 4 3 - Exam GENERAL DESCRIPTION: An elderly female lying in bed in no distress RESPIRATORY SYSTEM: Unlabored breathing , decreased breath sounds at bases HEART: S1 S2 regular rate and rhythm , ABDOMEN: Soft , no tenderness EXTREMITIES: No edema feet - Labs CBC & Chem 7: 09/26/21 06:29 09/26/21 06:29 Labs: Abnormal Lab Results - Last 24 Hours (Table) 09/25/21 09/25/21 09/26/21 Range/Units 16:43 20:05 06:29 RBC (4.10-5.20) X 10*6/uL Hgb (12.0-15.0) g/dL Hct (37.2-46.3) % MCHC (32.0-37.0) g/dL Sodium 135 L (137-145) mmol/L Glucose 115 H (74-99) mg/dL POC Glucose (mg/dL) 136 H 195 H (70-110) mg/dL Calcium 8.1 L (8.4-10.2) mg/dL C-Reactive Protein 13.1 H (<1.0) mg/dL Total Protein 5.4 L (6.3-8.2) g/dL Albumin 3.2 L (3.5-5.0) g/dL 09/26/21 09/26/21 09/26/21 Range/Units 06:29 06:58 11:03 RBC 3.79 L (4.10-5.20) X 10*6/uL Hgb 10.6 L (12.0-15.0) g/dL Hct 33.7 L (37.2-46.3) % MCHC 31.5 L (32.0-37.0) g/dL Sodium (137-145) mmol/L Glucose (74-99) mg/dL POC Glucose (mg/dL) 122 H 129 H (70-110) mg/dL Calcium (8.4-10.2) mg/dL C-Reactive Protein (<1.0) mg/dL Total Protein (6.3-8.2) g/dL Albumin (3.5-5.0) g/dL Assessment and Plan (1) Fever Status: Acute Code(s): R50.9 - FEVER, UNSPECIFIED SNOMED Code(s): 911233616 Plan: 1patient with a postop fever in this patient who did have a laminectomy and decompression of the L4-5 more likely reactive postsurgical versus atelectasis clinically did not have any obvious focus of infection. 2the patient fever pattern has improved without any antibiotic therapy, white count is normal, CRP slightly elevated could be related to the surgery patient has been advised to continue with incentive spirometry and will monitor the patient closely off antibiotic while waiting for the cultures to finalize. Time with Patient: Less than 30
== END 2021-09-26 14:10 | disposition home or self-care (01) | DRG 854 ==
LOC: OR 06:37 → 5NMEDONC 11:02 → OR 09-25 08:05
PROVIDERS: ADMIT Orthopaedic Surgery Orthopaedic Surgery of the Spine; ATTEND Orthopaedic Surgery Orthopaedic Surgery of the Spine
PROC: 0SG00AJ Fusion of Lumbar Vertebral Joint with Interbody Fusion Device, Posterior Approach, Anterior Column, Open Approach (ICD-10-PCS; principal; 2021-09-23 08:00)
PROC: 4A11X4G Monitoring of Peripheral Nervous Electrical Activity, Intraoperative, External Approach (ICD-10-PCS; principal; 2021-09-23 08:00)
PROC: 01NB0ZZ Release Lumbar Nerve, Open Approach (ICD-10-PCS; principal; 2021-09-23 08:00)
PROC: 0ST20ZZ Resection of Lumbar Vertebral Disc, Open Approach (ICD-10-PCS; principal; 2021-09-23 08:00)
PROC: 0SG0071 Fusion of Lumbar Vertebral Joint with Autologous Tissue Substitute, Posterior Approach, Posterior Column, Open Approach (ICD-10-PCS; principal; 2021-09-23 08:00)
DX: R50.82 Postprocedural fever (principal); J98.11 Atelectasis; E11.41 Type 2 diabetes mellitus with diabetic mononeuropathy; M51.25 Other intervertebral disc displacement, thoracolumbar region; M51.16 Intervertebral disc disorders with radiculopathy, lumbar region; M47.26 Other spondylosis with radiculopathy, lumbar region; M48.061 Spinal stenosis, lumbar region without neurogenic claudication; M43.16 Spondylolisthesis, lumbar region; D72.829 Elevated white blood cell count, unspecified; J45.909 Unspecified asthma, uncomplicated; K58.9 Irritable bowel syndrome, unspecified; I10 Essential (primary) hypertension; E03.9 Hypothyroidism, unspecified; M16.0 Bilateral primary osteoarthritis of hip; Z79.84 Long term (current) use of oral hypoglycemic drugs; Z79.890 Hormone replacement therapy; Z79.899 Other long term (current) drug therapy; Z88.1 Allergy status to other antibiotic agents
CPT/HCPCS: 36415; 71045; 72100; 80048; 80053; 81001; 82565; 83605; 84145; 85025; 86140; 86850; 86900; 86901

== ENCOUNTER → 2021-09-29 | Outpatient (CLI) | payer MEDICARE ==
[2021-09-29 15:13] LABS: Basophils # (A) 0.04 X 10*3/uL (0.00-0.10); Basophils % (A) 0.6 %; Eosinophils # (A) 0.11 X 10*3/uL (0.04-0.35); Eosinophils % (A) 1.7 %; HCT 35.2 % (37.2-46.3); HGB 11.1 g/dL (12.0-15.0); Immature Grans, Automated 0.2 %; Lymphocytes # (A) 1.81 X 10*3/uL (0.90-5.00); Lymphocytes % (A) 28.1 %; MCH 28.1 pg (27.0-32.0); MCHC 31.5 g/dL (32.0-37.0); MCV 89.1 fL (80.0-97.0); Mean Platelet Volume 9.9 fL (9.5-12.2); Monocytes # (A) 0.64 X 10*3/uL (0.20-1.00); NRBC Per 100 WBC 0 /100 WBCS (0.0-0.0); Neutrophils # (A) 3.82 X 10*3/uL (1.80-7.70); Neutrophils % (A) 59.4 %; Platelet Count 247 X 10*3/uL (140-440); RBC 3.95 X 10*6/uL (4.10-5.20); RDW 12.5 % (11.5-14.5); WBC 6.43 X 10*3/uL (4.50-10.00)
== END | disposition home or self-care (01) ==
LOC: LABWHC1 08:30
PROVIDERS: ATTEND Nurse Practitioner Family
DX: D72.829 Elevated white blood cell count, unspecified (principal)
CPT/HCPCS: 36415; 85025

== ENCOUNTER → 2022-09-07 | Outpatient (CLI) | payer MEDICARE ==
--- NOTE | 2022-09-08 17:04 | MM ---
Reason for Exam: Screening (asymptomatic). Last mammogram was performed 2 year(s) and 1 month(s) ago. Patient History: Menarche at age 11. First Full-Term at age 16. Hysterectomy at age 34. Postmenopausal. Estrogen for 6 years from age 50 until age 56. Risk Values: Lupe 5 year model risk: 1.3%. NCI Lifetime model risk: 3.3%. Prior Study Comparison: 02/05/2019 Bilateral Screening Mammogram, [facility]. 02/19/2019 Left Diagnostic Mammogram, [facility]. 08/12/2020 Bilateral Screening Mammogram, [facility]. Tissue Density: There are scattered fibroglandular densities. Findings: Analyzed By CAD. Pattern appears symmetrical and stable. Some focal asymmetry may be in the upper outer aspect left breast midportion which is stable from comparison. No significant interval changes are evident No suspicious groups of microcalcifications, spiculated or lobular masses, architectural distortion or other secondary signs of malignancy are mammographically apparent. Overall Assessment: Benign, BI-RAD 2 Management: Screening Mammogram of both breasts in 1 year. A negative mammogram report should not preclude additional follow up of suspicious palpable abnormalities. Patient should continue monthly self breast exam. A clinical breast exam by your physician is recommended on an annual basis and results should be correlated with mammographic findings. Electronically signed and approved by: Isaac Ortiz D.O. Radiologis
== END | disposition home or self-care (01) ==
LOC: RADMAMWWP 16:13
PROVIDERS: ATTEND Family Medicine
DX: Z12.31 Encounter for screening mammogram for malignant neoplasm of breast (principal); Z78.0 Asymptomatic menopausal state
CPT/HCPCS: 77063; 77067

== ENCOUNTER → 2023-08-30 | Outpatient (CLI) | payer MEDICARE ==
--- NOTE | 2023-08-30 14:52 | XR ---
EXAMINATION TYPE: XR chest 2V DATE OF EXAM: 08/30/2023 2:13 PM CLINICAL INDICATION:Female, 72 years old with history of R05.9 COUGH, UNSPECIFIED; [facility] COMPARISON: None TECHNIQUE: XR chest 2V. Frontal and lateral views of the chest.. FINDINGS: Lines/Tubes/Devices: No indwelling lines are seen. Heart/mediastinum: Heart size is normal. Mediastinum appears normal. Pulmonary vascularity: Not increased, Lungs/Pleura: There is no evidence of pleural effusion, focal consolidation, or pneumothorax. Musculoskeletal: No acute osseous abnormality demonstrated in the limits of the exam. Minimal endpla te spurring in the spine. Other findings: None. IMPRESSION: No acute cardiopulmonary abnormality.
== END | disposition home or self-care (01) ==
LOC: RADXRMAIN 14:03
PROVIDERS: ATTEND Family Medicine
DX: R09.89 Other specified symptoms and signs involving the circulatory and respiratory systems (principal); R05.9 Cough, unspecified
CPT/HCPCS: 71046

== ENCOUNTER → 2023-09-09 | Outpatient (CLI) | payer MEDICARE ==
--- NOTE | 2023-09-12 13:51 | MM ---
Reason for Exam: Screening (asymptomatic). Last screening mammogram was performed 12 month(s) ago. Patient History: Menarche at age 11. First Full-Term at age 16. Hysterectomy at age 34. Postmenopausal. Estrogen for 6 years from age 50 until age 56. Risk Values: Lupe 5 year model risk: 1.3%. NCI Lifetime model risk: 3.1%. Prior Study Comparison: 02/19/2019 Left Diagnostic Mammogram, [facility]. 08/12/2020 Bilateral Screening Mammogram, [facility]. 09/07/2022 Bilateral MG 3D screening mammo w/cad, [facility]. Tissue Density: There are scattered areas of fibroglandular density. Findings: Analyzed By CAD. Right breast: There is no suspicious group of microcalcifications or new suspicious mass. Left breast: There is no suspicious group of microcalcifications or new suspicious mass. Overall Assessment: Negative, BI-RAD 1 Management: Screening Mammogram of both breasts in [address] [facility] will attempt to contact patient to return for supplemental views and ultrasound if indicated. Patient should continue monthly self-breast exams. A clinical breast exam by your physician is recommended on an annual basis. This exam should not preclude additional follow-up of suspicious palpable abnormalities. Note on Lupe scores and lifetime risk: 1. A Lupe score greater than 3% is considered moderate risk. If this is the case, consider specialist referral to assess eligibility for a risk reducing agent. 2. If overall lifetime risk for the development of breast cancer is 20% or higher, the patient may qualify for future screening with alternating mammogram and breast MRI. Electronically signed and approved by: Evelio Harris DO
== END | disposition home or self-care (01) ==
LOC: RADMAMWWP 10:04
PROVIDERS: ATTEND Family Medicine
DX: Z12.31 Encounter for screening mammogram for malignant neoplasm of breast (principal); Z78.0 Asymptomatic menopausal state
CPT/HCPCS: 77063; 77067

== ENCOUNTER 2023-09-20 06:20 | Day surgery (SDC) | payer MEDICARE ==
[2023-09-16 15:08] VITALS: BMI 31.6
[2023-09-20 06:56] VITALS: TEMP 97.6
[2023-09-20] MEDS: IV FLUID CONTINUATION 1,000 ML IV ONE (07:03)
[2023-09-20] MEDS: LACTATED RINGERS 1,000 ML IV SCH (07:03)
[2023-09-20 07:11] LABS: Glucose,Whole Blood 105 mg/dL (70-110)
[2023-09-20] MEDS ORDERED: LIDOCAINE 1% INJ 10MG/ML (20 ML MDV) ONE (07:43)
[2023-09-20] MEDS ORDERED: PROPOFOL 10 MG/ML 20 ML VIAL IV ONE (07:43)
--- NOTE | 2023-09-20 07:57 | P.PCN ---
Date of Procedure: 09/20/23 Procedure(s) Performed: BRIEF HISTORY: Patient is a 72-year-old pleasant female scheduled for an elective colonoscopy as a part of patient by history of colon polyps. Last colonoscopy was 7 years ago. PROCEDURE PERFORMED: Colonoscopy. PREOPERATIVE DIAGNOSIS: History of colon polyps. IV sedation per Anesthesia. PROCEDURE: After informed consent was obtained, the patient, was brought into the endoscopy unit. IV sedation was administered by Anesthesia under continuous monitoring. Digital rectal examination was normal. Initially the Olympus CF-160 flexible video colonoscope was then inserted in the rectum, gradually advanced into the cecum without any difficulty. Careful examination was performed as the scope was gradually being withdrawn. Ileocecal valve and the appendiceal orifice were visualized and appeared normal. Prep was excellent. Mucosa of the cecum, ascending colon, transverse colon, descending colon, sigmoid colon, and rectum appeared normal. Sigmoid diverticulosis. Retroflexion was performed in the rectum and no lesions were seen. The patient tolerated the procedure well. IMPRESSION: Normal-appearing colon from rectum to cecum no evidence of colorectal neoplasia Scattered sigmoid diverticulosis. RECOMMENDATIONS: Findings of this examination were discussed with the patient as well as family. She was advised to have a repeat screening colonoscopy at age 79..
[2023-09-20 08:15] VITALS: BP 108/61; PULSE 64; RESP 18
== END 2023-09-20 08:30 | disposition home or self-care (01) ==
LOC: ORWHC2ENDO 06:20
PROVIDERS: ATTEND Internal Medicine Gastroenterology
DX: Z12.11 Encounter for screening for malignant neoplasm of colon (principal); K57.30 Diverticulosis of large intestine without perforation or abscess without bleeding; I10 Essential (primary) hypertension; J45.909 Unspecified asthma, uncomplicated; N28.9 Disorder of kidney and ureter, unspecified; E11.42 Type 2 diabetes mellitus with diabetic polyneuropathy; K58.9 Irritable bowel syndrome, unspecified; Z86.010 Personal history of colon polyps; Z79.84 Long term (current) use of oral hypoglycemic drugs; Z79.899 Other long term (current) drug therapy; Z90.710 Acquired absence of both cervix and uterus; Z88.6 Allergy status to analgesic agent
CPT/HCPCS: J2001; J2704; G0105

== ENCOUNTER → 2024-10-11 | Outpatient (CLI) | payer MEDICARE ==
--- NOTE | 2024-10-11 11:19 | MM ---
Reason for Exam: Screening (asymptomatic). Last mammogram was performed 1 year(s) and 1 month(s) ago. Patient History: Menarche at age 11. First Full-Term at age 16. Hysterectomy at age 34. Postmenopausal. Estrogen for 6 years from age 50 until age 56. Risk Values: Lupe 5 year model risk: 1.3%. NCI Lifetime model risk: 2.8%. Prior Study Comparison: 08/12/2020 Bilateral Screening Mammogram, [facility]. 09/07/2022 Bilateral MG 3D screening mammo w/cad, [facility]. 09/09/2023 Bilateral MG 3D screening mammo w/cad, [facility]. Tissue Density: There are scattered areas of fibroglandular density. Findings: Analyzed By CAD. Right breast: There is no suspicious group of microcalcifications or new suspicious mass. Left breast: There is no suspicious group of microcalcifications or new suspicious mass. Overall Assessment: Negative, BI-RAD 1 Management: Screening Mammogram of both breasts in [address] [facility] will attempt to contact patient to return for supplemental views and ultrasound if indicated. Patient should continue monthly self-breast exams. A clinical breast exam by your physician is recommended on an annual basis. This exam should not preclude additional follow-up of suspicious palpable abnormalities. Note on Lupe scores and lifetime risk: 1. A Lupe score greater than 3% is considered moderate risk. If this is the case, consider specialist referral to assess eligibility for a risk reducing agent. 2. If overall lifetime risk for the development of breast cancer is 20% or higher, the patient may qualify for future screening with alternating mammogram and breast MRI. [facility], , 10/11/2024 11:15 AM. Electronically signed and approved by: Evelio Harris DO
== END | disposition home or self-care (01) ==
LOC: RADMAMWWP 09:07
PROVIDERS: ATTEND Family Medicine
DX: Z12.31 Encounter for screening mammogram for malignant neoplasm of breast (principal); R92.323 Mammographic fibroglandular density, bilateral breasts; Z78.0 Asymptomatic menopausal state
CPT/HCPCS: 77063; 77067